=== PATIENT | female | born 1930 | race Caucasian/White ===

== ENCOUNTER 2020-01-08 12:47 | Inpatient (IN) | payer MEDICARE, BC ==
--- NOTE | 2020-01-08 13:14 | ER Document Report ---
ED General - General Chief Complaint: Bloody Stools Stated Complaint: BLOODY STOOLS/COUGH Time Seen by Provider: 01/08/20 13:05 Notes: 89 female presents with rectal bleeding. Twice yesterday twice today with blood in the toilet paper and in the commode. Formed stool no diarrhea. No cramping or pain no lightheadedness dizziness. Colonoscopy history. No weight loss no colon cancer C. - Related Data Home Medications: amilodipine Past Medical History - General Information source: Patient - Social History Smoking Status: Never Smoker Family History: None Patient has homicidal ideation: No Review of Systems - Review of Systems Notes: REVIEW OF SYSTEMS GEN: Denies fever, chills, weight loss ENT: Denies sore throat, nasal discharge, ear pain EYES: Denies blurry vision, eye pain, discharge CV: Denies chest pain, palpitations, edema RESP: Denies cough, shortness of breath, wheezing GI: PI MSK: Denies joint pain/swelling, edema, SKIN: Denies rash, skin lesions LYMPH: Denies swollen glands/lymph nodes NEURO: Denies headache, focal weakness or numbness, dizziness PSYCH: Denies depression, suicidal or homicidal ideation PHYSICAL EXAMINATION General: No acute distress, well-nourished Head: Atraumatic, normocephalic ENT: Mouth normal, oropharynx moist, no exudates or tonsillar enlargement Eyes: Conjunctiva normal, pupils equal, lids normal Neck: No JVD, supple, no guarding CVS: Normal rate, regular rhythm, no murmurs Resp: No resp distress, equal and normal breath sounds bilaterally GI: Amount of maroon stool in the vault g Ext: No deformities, no edema, normal range of motion in upper and lower ext Back: No CVA or midline TTP Skin: No rash, warm Lymphatic: No lymphadeopathy noted Neuro: Awake, alert. Face symmetric. GCS 15. Physical Exam - Vital signs Vitals: Temp Pulse Resp BP Pulse Ox 98.2 F 110 H 16 125/76 96 01/08/20 13:05 01/08/20 13:05 01/08/20 13:05 01/08/20 13:05 01/08/20 13:05 Course - Re-evaluation Re-evalutation: 01/08/20 18:47 Patient presents with GI bleed and maroon stool in the vault with no abdominal pain or tenderness Likely diverticular or other lower GI bleed but the patient has no medical care recently and is never had a colonoscopy for cancer/AVM/etc. is on the list Doubt upper GI bleed Patient had a small maroon stool output Her hemoglobin was slightly low, and on repeat exam 3 hours later dropped by one-point with no fluids or hydration Ideally I would admit her to the hospital overnight for serial hemoglobins and a GI consult but there is no GI available here. After lengthy conversation with the patient we agreed to transfer Discussed with [facility] and she was accepted by the hospitalist at [facility]. 01/08/20 18:[address] Mera from surgery who is not comfortable doing colonoscopy and said there is no intervention that he could perform Recommended tagged red cell scanno note is available here. She does not need CT imaging as far as I can tell Hospitalist advised and agrees. - Vital Signs Vital signs: Temp Pulse Resp BP Pulse Ox 98.2 F 110 H 16 125/76 96 01/08/20 13:08 01/08/20 13:05 01/08/20 13:05 01/08/20 13:05 01/08/20 13:05 - Laboratory Result Diagrams: 01/08/20 16:30 01/08/20 13:00 Laboratory results interpreted by me: 01/08/20 01/08/20 01/08/20 13:00 13:00 16:30 WBC 17.2 H 16.6 H RBC 3.49 L Hgb 11.3 L 10.5 L Hct 34.2 L 31.4 L Absolute Neuts (auto) 13.2 H 12.8 H Sodium 135.9 L BUN 23 H Est GFR (MDRD) Non-Af 55 L Glucose 115 H Discharge - Discharge Clinical Impression: GI bleed Qualifiers: GI bleed type/associated pathology: unspecified gastrointestinal hemorrhage type Qualified Code(s): K92.2 - Gastrointestinal hemorrhage, unspecified Condition: Good Disposition: [facility]
[2020-01-08 13:34] LABS: ABSOLUTE BASOPHILS # (AUTO) 0.1 10^3/uL (0.0-0.2); ABSOLUTE EOSINOPHILS # (AUTO) 0.3 10^3/uL (0.0-0.6); ABSOLUTE LYMPHOCYTES (AUTO) 2.3 10^3/uL (0.5-4.7); ABSOLUTE MONOCYTES (AUTO) 1.3 10^3/uL (0.1-1.4); ABSOLUTE NEUT (AUTO) 13.2 10^3/uL (1.7-8.2); BASOPHILS % (AUTO) 0.5 % (0-2); EOSINOPHILS % (AUTO) 1.8 % (0-6); HEMATOCRIT 34.2 % (36.0-47.0); HEMOGLOBIN 11.3 g/dL (12.0-15.5); LYMPHOCYTES % (AUTO) 13.6 % (13-45); MEAN CORPUSCULAR HEMOGLOBIN 29.9 pg (27.0-33.4); MEAN CORPUSCULAR HGB CONC 32.9 g/dL (32.0-36.0); MEAN CORPUSCULAR VOLUME 91 fl (80-97); MONOCYTES % (AUTO) 7.7 % (3-13); PLATELET COUNT 386 10^3/uL (150-450); RED BLOOD COUNT 3.77 10^6/uL (3.72-5.28); RED CELL DISTRIBUTION WIDTH 13.5 % (11.5-14.0); SEGMENTED NEUTROPHILS % (AUTO) 76.4 % (42-78); TOTAL CELLS COUNTED % (AUTO) 100 %; WHITE BLOOD COUNT 17.2 10^3/uL (4.0-10.5)
[2020-01-08 13:53] LABS: ANION GAP 7 (5-19); BLOOD UREA NITROGEN 23 mg/dL (7-20); CALCIUM 8.4 mg/dL (8.4-10.2); CARBON DIOXIDE 29 mmol/L (22-30); CHLORIDE 100 mmol/L (98-107); GLUCOSE 115 mg/dL (75-110)
[2020-01-08 16:39] LABS: ABSOLUTE EOSINOPHILS # (AUTO) 0.2 10^3/uL (0.0-0.6); ABSOLUTE LYMPHOCYTES (AUTO) 2.3 10^3/uL (0.5-4.7); ABSOLUTE MONOCYTES (AUTO) 1.2 10^3/uL (0.1-1.4); ABSOLUTE NEUT (AUTO) 12.8 10^3/uL (1.7-8.2); BASOPHILS % (AUTO) 0.3 % (0-2); EOSINOPHILS % (AUTO) 1.5 % (0-6); HEMATOCRIT 31.4 % (36.0-47.0); HEMOGLOBIN 10.5 g/dL (12.0-15.5); LYMPHOCYTES % (AUTO) 13.9 % (13-45); MEAN CORPUSCULAR HEMOGLOBIN 30.2 pg (27.0-33.4); MEAN CORPUSCULAR HGB CONC 33.5 g/dL (32.0-36.0); MEAN CORPUSCULAR VOLUME 90 fl (80-97); MONOCYTES % (AUTO) 7.1 % (3-13); PLATELET COUNT 340 10^3/uL (150-450); RED BLOOD COUNT 3.49 10^6/uL (3.72-5.28); RED CELL DISTRIBUTION WIDTH 13.9 % (11.5-14.0); SEGMENTED NEUTROPHILS % (AUTO) 77.2 % (42-78); TOTAL CELLS COUNTED % (AUTO) 100 %; WHITE BLOOD COUNT 16.6 10^3/uL (4.0-10.5)
[2020-01-08] MEDS ORDERED: DEXTROSE 5%-NORMAL SALINE 1,000 ML IV ONE (18:48)
[2020-01-08] MEDS ORDERED: NORMAL SALINE 250 ML IV PRN (21:30)
[2020-01-08 22:03] LABS: HEMATOCRIT 31.2 % (36.0-47.0); HEMOGLOBIN 10.5 g/dL (12.0-15.5); MEAN CORPUSCULAR HEMOGLOBIN 30.3 pg (27.0-33.4); MEAN CORPUSCULAR HGB CONC 33.7 g/dL (32.0-36.0); MEAN CORPUSCULAR VOLUME 90 fl (80-97); PLATELET COUNT 343 10^3/uL (150-450); RED BLOOD COUNT 3.47 10^6/uL (3.72-5.28); RED CELL DISTRIBUTION WIDTH 13.8 % (11.5-14.0); WHITE BLOOD COUNT 15.9 10^3/uL (4.0-10.5)
[2020-01-08] MEDS ORDERED: ONDANSETRON HCL INJ/PF 4 MG/2 ML SDV IV PRN (22:13)
[2020-01-08] MEDS ORDERED: IPRATROPIUM/ALBUTEROL 0.5-2.5 MG/3 ML AMPUL NEB PRN (22:13)
[2020-01-08] MEDS ORDERED: ACETAMINOPHEN 325 MG TABLET PO PRN (22:13)
[2020-01-08] MEDS ORDERED: NORMAL SALINE 1000 ML 1,000 ML IV ONE (22:16)
--- NOTE | 2020-01-09 04:17 | PDOC H&P ---
History of Present Illness Admission Date/PCP: 01/08/20 23:12 Patient complains of: Bright red blood per rectum History of Present Illness: NABIL CORONADO is a 89 year old female with a past medical history of osteoarthritis and hypertension. Presents with approximately 5 days of loose stools followed by 4 episodes of bright red blood per rectum over the last 24 hours. She denies anticoagulation, antiplatelet therapy, previous episode or history of abdominal pain nausea or vomiting following a meal. She otherwise feels well and has had no further episode in the emergency department. She is found to have a mild anemia with a hemoglobin of 11.3 followed by 10.5 again repeated at 10.5 she is referred to the hospitalist for admission. She admits to weight loss of approximately 15 pounds in the last 6 months without effort. She denies change in stool caliber. Or recent GI screening. Past Medical History Cardiac Medical History: Reports: Hypertension Pulmonary Medical History: Reports: None EENT Medical History: Reports: None Neurological Medical History: Reports: None Endocrine Medical History: Reports: None Renal/ Medical History: Reports: None Malignancy Medical History: Reports: None GI Medical History: Reports: None Musculoskeltal Medical History: Reports: Arthritis Skin Medical History: Reports: None Psychiatric Medical History: Denies: Depression Traumatic Medical History: Reports: None Hematology: Reports: None Infectious Medical History: Reports: None Past Surgical History Past Surgical History: Reports: None Social History Information Source: Patient Lives with: Alone Smoking Status: Former Smoker Frequency of Alcohol Use: None Drugs: None - Advance Directive Resuscitation Status: Full Code Family History Family History: Arthritis Parental Family History Reviewed: Yes Children Family History Reviewed: Yes Sibling(s) Family History Reviewed.: Yes Medication/Allergy Allergies/Adverse Reactions: No Known Allergies Allergy (Verified 01/08/20 20:41) Review of Systems Constitutional: ABSENT: chills, fever(s), headache(s), weight gain, weight loss Eyes: ABSENT: visual disturbances Ears: ABSENT: hearing changes Cardiovascular: ABSENT: chest pain, dyspnea on exertion, edema, orthropnea, palpitations Respiratory: ABSENT: cough, hemoptysis Gastrointestinal: ABSENT: abdominal pain, constipation, diarrhea, hematemesis, hematochezia, nausea, vomiting Genitourinary: ABSENT: dysuria, hematuria Musculoskeletal: ABSENT: joint swelling Integumentary: ABSENT: rash, wounds Neurological: ABSENT: abnormal gait, abnormal speech, confusion, dizziness, focal weakness, syncope Psychiatric: ABSENT: anxiety, depression, homidical ideation, suicidal ideation Endocrine: ABSENT: cold intolerance, heat intolerance, polydipsia, polyuria Hematologic/Lymphatic: ABSENT: easy bleeding, easy bruising Physical Exam Vital Signs: Temp Pulse Resp BP Pulse Ox 98.5 F 120 H 20 121/79 99 01/09/20 04:08 01/09/20 04:08 01/09/20 04:08 01/09/20 04:08 01/09/20 04:08 Intake & Output 01/07/20 01/08/20 01/09/20 11:59 11:59 11:59 Intake Total 877 Balance 877 Weight 55.3 kg General appearance: PRESENT: no acute distress, well-developed, well-nourished Head exam: PRESENT: atraumatic, normocephalic Eye exam: PRESENT: conjunctiva pink, EOMI, PERRLA. ABSENT: scleral icterus Ear exam: PRESENT: normal external ear exam Mouth exam: PRESENT: moist, tongue midline Neck exam: ABSENT: carotid bruit, JVD, lymphadenopathy, thyromegaly Respiratory exam: PRESENT: clear to auscultation aisha. ABSENT: rales, rhonchi, wheezes Cardiovascular exam: PRESENT: RRR. ABSENT: diastolic murmur, rubs, systolic murmur Pulses: PRESENT: normal dorsalis pedis pul Vascular exam: PRESENT: normal capillary refill GI/Abdominal exam: PRESENT: normal bowel sounds, soft. ABSENT: distended, guarding, mass, organolmegaly, rebound, tenderness Rectal exam: PRESENT: deferred Extremities exam: PRESENT: full ROM. ABSENT: calf tenderness, clubbing, pedal edema Neurological exam: PRESENT: alert, awake, oriented to person, oriented to place, oriented to time, oriented to situation, CN II-XII grossly intact. ABSENT: motor sensory deficit Psychiatric exam: PRESENT: appropriate affect, normal mood. ABSENT: homicidal ideation, suicidal ideation Skin exam: PRESENT: dry, intact, warm. ABSENT: cyanosis, rash Results Laboratory Results: 01/08/20 21:55 01/08/20 13:00 01/08/20 01/08/20 01/08/20 13:00 13:00 13:00 WBC 17.2 H RBC 3.77 Hgb 11.3 L Hct 34.2 L MCV 91 MCH 29.9 MCHC 32.9 RDW 13.5 Plt Count 386 Seg Neutrophils % 76.4 Sodium 135.9 L Potassium 4.0 Chloride 100 Carbon Dioxide 29 Anion Gap 7 BUN 23 H Creatinine 0.96 Est GFR ( Amer) > 60 Glucose 115 H Calcium 8.4 Blood Type O NEGATIVE Antibody Screen NEGATIVE 01/08/20 01/08/20 16:30 21:55 WBC 16.6 H 15.9 H RBC 3.49 L 3.47 L Hgb 10.5 L 10.5 L Hct 31.4 L 31.2 L MCV 90 90 MCH 30.2 30.3 MCHC 33.5 33.7 RDW 13.9 13.8 Plt Count 340 343 Seg Neutrophils % 77.2 Sodium Potassium Chloride Carbon Dioxide Anion Gap BUN Creatinine Est GFR ( Amer) Glucose Calcium Blood Type Antibody Screen Assessment and Plan - Diagnosis (1) Anemia Qualifiers: Other causes of anemia: acute posthemorrhagic Is this a current diagnosis for this admission?: Yes Plan: Secondary to lower GI bleed, transfuse as needed abrupt change in hemoglobin less then 9. (2) Hypertension Is this a current diagnosis for this admission?: Yes Plan: Hold Norvasc for systolic pressure greater than 160. (3) GI bleed Qualifiers: GI bleed type/associated pathology: unspecified gastrointestinal hemorrhage type Qualified Code(s): K92.2 - Gastrointestinal hemorrhage, unspecified Is this a current diagnosis for this admission?: Yes Plan: Likely lower diverticular bleed given age, history of loose stools and painless bleeding. Follow-up CBC and gastroenterology consult. - Time Time Spent with patient: 25-34 minutes - Inpatient Certification Medical Necessity: Need Close Monitoring Due to Risk of Patient Decompensation
[2020-01-09 06:58] LABS: HEMATOCRIT 34.4 % (36.0-47.0); HEMOGLOBIN 11.4 g/dL (12.0-15.5); MEAN CORPUSCULAR HEMOGLOBIN 29.1 pg (27.0-33.4); MEAN CORPUSCULAR HGB CONC 33.1 g/dL (32.0-36.0); MEAN CORPUSCULAR VOLUME 88 fl (80-97); PLATELET COUNT 276 10^3/uL (150-450); RED BLOOD COUNT 3.91 10^6/uL (3.72-5.28); RED CELL DISTRIBUTION WIDTH 14.7 % (11.5-14.0)
[2020-01-09 07:16] LABS: ABSOLUTE LYMPHOCYTES# (MANUAL) 0.8 10^3/uL (0.5-4.7); ABSOLUTE MONOCYTES # (MANUAL) 1.1 10^3/uL (0.1-1.4); BASOPHILS % (MANUAL) 2 % (0-2); EOSINOPHILS % (MANUAL) 0 % (0-6); LYMPHOCYTES % (MANUAL) 3 % (13-45); MONOCYTES % (MANUAL) 4 % (3-13); SEGMENTED NEUTROPHILS % (MAN) 91 % (42-78); TOTAL CELLS COUNTED 100
[2020-01-09 07:17] LABS: ANISOCYTOSIS SLIGHT; POIKILOCYTOSIS SLIGHT; TOXIC GRANULATION 1+; TOXIC VACUOLATION PRESENT
[2020-01-09 07:18] LABS: OVALOCYTES SLIGHT; PLATELET COMMENT ADEQUATE
[2020-01-09] MEDS ORDERED: GLUCAGON,HUMAN RECOMB 1 MG INJ SUBCUT PRN (08:10)
[2020-01-09] MEDS ORDERED: DEXTROSE 50%-WATER 25 GM/50 ML DISP.SYRIN IV PRN ×2 (08:10)
[2020-01-09] MEDS ORDERED: DEXTROSE 40% GEL 15 GM TUBE PO PRN ×2 (08:10)
[2020-01-09] MEDS: DEXTROSE 5%-NORMAL SALINE 1,000 ML IV PRN (08:37)
--- NOTE | 2020-01-09 09:11 | RADIOLOGY REPORT (SQ) ---
EXAM DESCRIPTION: CHEST SINGLE VIEW IMAGES COMPLETED DATE/TIME: 01/09/2020 8:55 am REASON FOR STUDY: cough, leukocytosis, tacycardia COMPARISON: None. EXAM PARAMETERS: NUMBER OF VIEWS: One view. TECHNIQUE: Single frontal radiographic view of the chest acquired. RADIATION DOSE: NA LIMITATIONS: None. FINDINGS: LUNGS AND PLEURA: Emphysema. Trace right pleural effusion. No infiltrate. MEDIASTINUM AND HILAR STRUCTURES: No masses. Contour normal. HEART AND VASCULAR STRUCTURES: Heart normal in size. Normal vasculature. BONES: No acute findings. HARDWARE: None in the chest. OTHER: No other significant finding. IMPRESSION: COPD. Trace right pleural effusion. TECHNICAL DOCUMENTATION: JOB ID: [id number] 2010 [employer]- All Rights Reserved Reading location - IP/workstation name: [email or web address]
[2020-01-09 09:17] LABS: APPEARANCE,URINE CLEAR; BILIRUBIN,URINE NEGATIVE (NEGATIVE); COLOR,URINE YELLOW; GLUCOSE, URINE NEGATIVE (NEGATIVE); KETONES,URINE TRACE mg/dL (NEGATIVE); PROTEIN,URINE 30 mg/dL (NEGATIVE); URINE SPECIFIC GRAVITY 1.019; UROBILINOGEN,URINE NEGATIVE mg/dL (<2.0)
[2020-01-09 09:18] LABS: ANION GAP 5 (5-19); BLOOD UREA NITROGEN 18 mg/dL (7-20); CALCIUM 7.8 mg/dL (8.4-10.2); CARBON DIOXIDE 26 mmol/L (22-30); CHLORIDE 101 mmol/L (98-107); GLUCOSE 116 mg/dL (75-110); POTASSIUM 3.5 mmol/L (3.6-5.0)
[2020-01-09] MEDS ORDERED: POTASSIUM CHLORIDE 10 MEQ TABLET.ER PO ONE (14:30)
--- NOTE | 2020-01-09 16:48 | PDOC CONSULTATION ---
Consultation Consult Date: 01/09/20 Provider Consulted: JEREMY HDZ Consult reason:: possible GI bleeding, suspicious for possible diverticular bleeding but has reords indicating possible melena which is suggestive of upper GI bleeding History of Present Illness Admission Date/PCP: 01/08/20 23:12 History of Present Illness: NABIL CORONADO is a 89 year old female patient is admitted for rectal bleeding and requiring a blood transfusion there is documentation that it could be melena Melena is defined as black tarry stools which are an indication of upper GI source it is no associated with any epigastric pain no associated nausea or vomiting suspect possible limited diverticular bleeding but will need work up to exclude other etiology Past Medical History Cardiac Medical History: Reports: Hypertension Pulmonary Medical History: Reports: None EENT Medical History: Reports: None Neurological Medical History: Reports: None Endocrine Medical History: Reports: None Renal/ Medical History: Reports: None Malignancy Medical History: Reports: None GI Medical History: Reports: None Musculoskeltal Medical History: Reports: Arthritis Skin Medical History: Reports: None Psychiatric Medical History: Denies: Depression Traumatic Medical History: Reports: None Hematology: Reports: None Infectious Medical History: Reports: None Past Surgical History Past Surgical History: Reports: None Social History Lives with: Alone Smoking Status: Former Smoker Frequency of Alcohol Use: None Drugs: None - Advance Directive Resuscitation Status: Full Code Family History Family History: Arthritis Parental Family History Reviewed: Yes Children Family History Reviewed: Unknown Sibling(s) Family History Reviewed.: Unknown Medication/Allergy Home Medications: Amlodipine Besylate [Norvasc 5 mg Tablet] 5 mg PO DAILY 01/09/20 Calcium Carbonate [Caltrate 600 mg Tablet] 600 mg PO DAILY 01/09/20 Multivitamin 1 each PO DAILY 01/09/20 Laverne-3/Dha/Epa/Fish Oil [Fish Oil 1,000 mg Softgel] 1 each PO DAILY 01/09/20 Allergies/Adverse Reactions: No Known Allergies Allergy (Verified 01/08/20 20:41) Review of Systems Constitutional: ABSENT: fever(s), headache(s), night sweats Eyes: ABSENT: visual disturbances Ears: ABSENT: hearing changes Nose, Mouth, and Throat: ABSENT: mouth pain, sore throat Cardiovascular: ABSENT: edema, orthropnea, palpitations Respiratory: ABSENT: dyspnea, hemoptysis Gastrointestinal: ABSENT: hematemesis Genitourinary: ABSENT: dysuria, hematuria Musculoskeletal: ABSENT: deformity, joint swelling Integumentary: ABSENT: lesions, pruritus Neurological: ABSENT: syncope, tingling, tremor(s), vertigo Endocrine: ABSENT: polydipsia, polyphagia, polyuria Hematologic/Lymphatic: ABSENT: easy bruising, lymphadenopathy Physical Exam Vital Signs: Temp Pulse Resp BP Pulse Ox 98 F 97 16 112/57 L 94 01/09/20 04:10 01/09/20 14:00 01/09/20 10:28 01/09/20 06:14 01/09/20 10:28 Intake & Output 01/08/20 01/09/20 01/10/20 06:59 06:59 06:59 Intake Total 1400 900 Balance 1400 900 Weight 55.3 kg General appearance: PRESENT: no acute distress, well-developed, well-nourished Head exam: PRESENT: atraumatic, normocephalic Eye exam: PRESENT: EOMI, PERRLA. ABSENT: nystagmus, periorbital swelling, scleral icterus Mouth exam: PRESENT: moist, neck supple Throat exam: ABSENT: tonsillar exudate, tonsillogmegaly Neck exam: ABSENT: meningismus, tenderness, thyromegaly Respiratory exam: PRESENT: symmetrical, unlabored. ABSENT: tachypnea, wheezes Cardiovascular exam: PRESENT: RRR, +S1, +S2 GI/Abdominal exam: PRESENT: soft. ABSENT: rebound, rigid, tenderness Extremities exam: ABSENT: joint swelling Musculoskeletal exam: PRESENT: full ROM Neurological exam: PRESENT: oriented to time, oriented to situation, CN II-XII grossly intact Focused psych exam: ABSENT: restlessness Skin exam: PRESENT: normal color, vesicles. ABSENT: mottled, pallor, urticaria Results Laboratory Results: 01/09/20 05:53 01/09/20 05:53 01/08/20 01/08/20 01/08/20 13:00 16:30 21:55 WBC 16.6 H 15.9 H RBC 3.49 L 3.47 L Hgb 10.5 L 10.5 L Hct 31.4 L 31.2 L MCV 90 90 MCH 30.2 30.3 MCHC 33.5 33.7 RDW 13.9 13.8 Plt Count 340 343 Seg Neutrophils % 77.2 Sodium Potassium Chloride Carbon Dioxide Anion Gap BUN Creatinine Est GFR ( Amer) Glucose Calcium Urine Color Urine Appearance Urine pH Ur Specific [place] Urine Protein Urine Glucose (UA) Urine Ketones Urine Blood Urine RBC (Auto) Blood Type O NEGATIVE Antibody Screen NEGATIVE 01/09/20 01/09/20 01/09/20 05:53 05:53 09:04 WBC 27.0 H RBC 3.91 Hgb 11.4 L Hct 34.4 L MCV 88 MCH 29.1 MCHC 33.1 RDW 14.7 H Plt Count 276 Seg Neutrophils % Not Reportable Sodium 132.4 L Potassium 3.5 L Chloride 101 Carbon Dioxide 26 Anion Gap 5 BUN 18 Creatinine 0.75 Est GFR ( Amer) > 60 Glucose 116 H Calcium 7.8 L Urine Color YELLOW Urine Appearance CLEAR Urine pH 5.0 Ur Specific [place] 1.019 Urine Protein 30 H Urine Glucose (UA) NEGATIVE Urine Ketones TRACE H Urine Blood NEGATIVE Urine RBC (Auto) 2 Blood Type Antibody Screen Impressions: Chest X-Ray 01/09/20 00:00 IMPRESSION: COPD. Trace right pleural effusion. Assessment & Plan - Diagnosis (1) GI bleed Qualifiers: GI bleed type/associated pathology: unspecified gastrointestinal hemorrhage type Qualified Code(s): K92.2 - Gastrointestinal hemorrhage, unspecified Is this a current diagnosis for this admission?: Yes Plan: suspicious for possible lower GI bleeding , however since there is a mention that it could be upper GI warrants an evaluation if case the colonoscopy is negative will schedule a colonoscopy/ EGD in the OR, if source is found on colon , will not perform an EGD Risks, benefits and alternatives are discussed with the patient in detail further recommendations to follow - Time Time Spent: 50 to 70 Minutes
[2020-01-09] MEDS ORDERED: POLYETHYLENE GLYCOL 3350 POWDER 17 GM/1 PACKET PO ONE (17:00)
--- NOTE | 2020-01-09 17:41 | PDOC PROGRESS REPORT ---
Subjective Progress Note for:: 01/09/20 Subjective:: NABIL CORONADO is a 89 year old female with a past medical history of osteoarthritis and hypertension who was admitted 01/08/2020 with acute blood loss anemia secondary to GI bleed. Patient was seen on afternoon rounds. She was found resting in bed, comfortably, on room air. She has had additional melena bowel movements. She denies abdominal discomfort, nausea, vomiting, chest pain, palpitations, dyspnea, dizziness and headaches. Discussed planned EGD/colonoscopy tomorrow. She has no other questions or concerns at this time. No concerns per nursing. Reason For Visit: LOWER GI BLEED Physical Exam Vital Signs: Temp Pulse Resp BP Pulse Ox 98 F 97 16 112/57 L 94 01/09/20 04:10 01/09/20 14:00 01/09/20 10:28 01/09/20 06:14 01/09/20 10:28 Intake & Output 01/08/20 01/09/20 01/10/20 06:59 06:59 06:59 Intake Total 1400 900 Balance 1400 900 Weight 55.3 kg General appearance: PRESENT: no acute distress, cooperative, well-developed, well-nourished, other - frail appearing Head exam: PRESENT: atraumatic, normocephalic Eye exam: PRESENT: conjunctiva pink, EOMI, PERRLA. ABSENT: scleral icterus Mouth exam: PRESENT: moist, tongue midline Respiratory exam: PRESENT: clear to auscultation aisha, symmetrical, unlabored. ABSENT: rales, rhonchi, wheezes Cardiovascular exam: PRESENT: RRR, +S1, +S2. ABSENT: diastolic murmur, rubs, systolic murmur Pulses: PRESENT: normal dorsalis pedis pul Vascular exam: PRESENT: normal capillary refill GI/Abdominal exam: PRESENT: normal bowel sounds, soft. ABSENT: distended, guarding, mass, organolmegaly, rebound, tenderness Rectal exam: PRESENT: deferred Extremities exam: PRESENT: full ROM. ABSENT: calf tenderness, clubbing, pedal edema Musculoskeletal exam: PRESENT: ambulatory Neurological exam: PRESENT: alert, awake, oriented to person, oriented to place, oriented to time, oriented to situation, CN II-XII grossly intact. ABSENT: motor sensory deficit Psychiatric exam: PRESENT: appropriate affect, normal mood. ABSENT: homicidal i deation, suicidal ideation Skin exam: PRESENT: dry, intact, warm. ABSENT: cyanosis, rash Results Laboratory Results: 01/09/20 05:53 01/09/20 05:53 01/08/20 01/08/20 01/09/20 13:00 21:55 05:53 WBC 15.9 H 27.0 H RBC 3.47 L 3.91 Hgb 10.5 L 11.4 L Hct 31.2 L 34.4 L MCV 90 88 MCH 30.3 29.1 MCHC 33.7 33.1 RDW 13.8 14.7 H Plt Count 343 276 Seg Neutrophils % Not Reportable Sodium Potassium Chloride Carbon Dioxide Anion Gap BUN Creatinine Est GFR ( Amer) Glucose Calcium Urine Color Urine Appearance Urine pH Ur Specific [place] Urine Protein Urine Glucose (UA) Urine Ketones Urine Blood Urine RBC (Auto) Blood Type O NEGATIVE Antibody Screen NEGATIVE 01/09/20 01/09/20 05:53 09:04 WBC RBC Hgb Hct MCV MCH MCHC RDW Plt Count Seg Neutrophils % Sodium 132.4 L Potassium 3.5 L Chloride 101 Carbon Dioxide 26 Anion Gap 5 BUN 18 Creatinine 0.75 Est GFR ( Amer) > 60 Glucose 116 H Calcium 7.8 L Urine Color YELLOW Urine Appearance CLEAR Urine pH 5.0 Ur Specific [place] 1.019 Urine Protein 30 H Urine Glucose (UA) NEGATIVE Urine Ketones TRACE H Urine Blood NEGATIVE Urine RBC (Auto) 2 Blood Type Antibody Screen Impressions: Chest X-Ray 01/09/20 00:00 IMPRESSION: COPD. Trace right pleural effusion. Assessment and Plan - Diagnosis (1) GI bleed Qualifiers: GI bleed type/associated pathology: unspecified gastrointestinal hemorrhage type Qualified Code(s): K92.2 - Gastrointestinal hemorrhage, unspecified Is this a current diagnosis for this admission?: Yes Plan: Likely lower diverticular bleed given age, history of loose stools and painless bleeding. GI consulted; planning EGD/Colonoscopy tomorrow. Clear liquid diet; bowel prep this evening Protonix twice daily Follow H&H closely (2) Anemia Qualifiers: Other causes of anemia: acute posthemorrhagic Is this a current diagnosis for this admission?: Yes Plan: Secondary to lower GI bleed s/p 1 unit PRBC Hgb 11.3-> 10.5-> 10.5-> 11.4 Serial CBC and transfuse as indicated. (3) Leukocytosis Is this a current diagnosis for this admission?: Yes Plan: Likely reactive secondary to GI bleed. Patient remains afebrile without complaints or symptoms to suggest infectious process. CXR negative for acute fidings. UA negative Blood cultures pending Follow up CBC; if continue to trend upwards, consider start of IV Cipro/Flagyl (4) Hypertension Is this a current diagnosis for this admission?: Yes Plan: Hold Norvasc r/t soft blood pressures; resume once SBP consistently >130 - Time Time Spent with patient: 25-34 minutes Medications reviewed and adjusted accordingly: Yes Anticipated discharge: Home
[2020-01-09 18:37] LABS: HEMATOCRIT 37.7 % (36.0-47.0); HEMOGLOBIN 12.2 g/dL (12.0-15.5); MEAN CORPUSCULAR HEMOGLOBIN 29.5 pg (27.0-33.4); MEAN CORPUSCULAR HGB CONC 32.4 g/dL (32.0-36.0); MEAN CORPUSCULAR VOLUME 91 fl (80-97); PLATELET COUNT 325 10^3/uL (150-450); RED BLOOD COUNT 4.14 10^6/uL (3.72-5.28); RED CELL DISTRIBUTION WIDTH 15.2 % (11.5-14.0)
[2020-01-09] MEDS: PANTOPRAZOLE SODIUM 40 MG VIAL IV SCH (21:20)
[2020-01-10] MEDS: DEXTROSE 5%-NORMAL SALINE 1,000 ML IV PRN ×3 (00:16→21:30)
[2020-01-10 06:56] LABS: HEMATOCRIT 34.5 % (36.0-47.0); HEMOGLOBIN 11.5 g/dL (12.0-15.5); MEAN CORPUSCULAR HEMOGLOBIN 29.5 pg (27.0-33.4); MEAN CORPUSCULAR HGB CONC 33.3 g/dL (32.0-36.0); MEAN CORPUSCULAR VOLUME 89 fl (80-97); PLATELET COUNT 266 10^3/uL (150-450); RED BLOOD COUNT 3.89 10^6/uL (3.72-5.28); RED CELL DISTRIBUTION WIDTH 14.9 % (11.5-14.0); WHITE BLOOD COUNT 13.5 10^3/uL (4.0-10.5)
[2020-01-10 07:00] LABS: BLOOD UREA NITROGEN 12 mg/dL (7-20); CALCIUM 7.8 mg/dL (8.4-10.2); CARBON DIOXIDE 25 mmol/L (22-30); CHLORIDE 106 mmol/L (98-107); GLUCOSE 116 mg/dL (75-110); POTASSIUM 3.3 mmol/L (3.6-5.0)
[2020-01-10 07:10] LABS: ANION GAP 4 (5-19)
[2020-01-10] MEDS: PANTOPRAZOLE SODIUM 40 MG VIAL IV SCH ×2 (09:46→21:19)
[2020-01-10] MEDS ORDERED: (PENDING PHARMACY ID) (Omega-3/Dha/Epa/Fish Oil [Fish Oil 1,000 Mg Softgel] 1 EACH) PO SCH (10:00)
[2020-01-10 10:19] LABS: ABSOLUTE RETICS # 0.052 10^6/uL (0.028-0.122); RETICULOCYTE COUNT (AUTO) 1.24 % (0.66-2.85)
[2020-01-10] MEDS ORDERED: PROPOFOL INJ 200 MG/20 ML VIAL IV ONE (11:49)
--- NOTE | 2020-01-10 12:13 | PDOC PROGRESS REPORT ---
Subjective Progress Note for:: 01/10/20 Subjective:: NABIL CORONADO is a 89 year old female with a past medical history of osteoarthritis and hypertension who was admitted 01/08/2020 with acute blood loss anemia secondary to GI bleed. 01/10/2020. No acute events overnight. Comfortably resting in bed no apparent distress, pending upper and lower GI endoscopy, denies any melena, hematochezia or hematemesis. Reason For Visit: LOWER GI BLEED Physical Exam Vital Signs: Temp Pulse Resp BP Pulse Ox 97.5 F 86 12 109/62 93 01/10/20 08:33 01/10/20 08:33 01/10/20 08:33 01/10/20 08:33 01/10/20 08:33 Intake & Output 01/09/20 01/10/20 01/11/20 06:59 06:59 06:59 Intake Total 1400 2530 1000 Balance 1400 2530 1000 Weight 55.3 kg 56.4 kg General appearance: PRESENT: no acute distress, well-developed, well-nourished Head exam: PRESENT: atraumatic, normocephalic Respiratory exam: PRESENT: clear to auscultation aisha. ABSENT: rales, rhonchi, wheezes Cardiovascular exam: PRESENT: RRR. ABSENT: diastolic murmur, rubs, systolic murmur GI/Abdominal exam: PRESENT: normal bowel sounds, soft. ABSENT: distended, guarding, mass, organolmegaly, rebound, tenderness Neurological exam: PRESENT: alert, awake, oriented to person, oriented to place, oriented to time, oriented to situation, CN II-XII grossly intact. ABSENT: motor sensory deficit Results Laboratory Results: 01/10/20 06:04 01/10/20 06:04 01/09/20 01/10/20 01/10/20 18:05 06:04 06:04 WBC 21.0 H 13.5 H RBC 4.14 3.89 Hgb 12.2 11.5 L Hct 37.7 34.5 L MCV 91 89 MCH 29.5 29.5 MCHC 32.4 33.3 RDW 15.2 H 14.9 H Plt Count 325 266 Retic Count (auto) Sodium 135.1 L Potassium 3.3 L Chloride 106 Carbon Dioxide 25 Anion Gap 4 L BUN 12 Creatinine 0.76 Est GFR ( Amer) > 60 Glucose 116 H Calcium 7.8 L Transferrin 01/10/20 01/10/20 06:04 10:48 WBC RBC Hgb Hct MCV MCH MCHC RDW Plt Count Retic Count (auto) 1.24 Sodium Potassium Chloride Carbon Dioxide Anion Gap BUN Creatinine Est GFR ( Amer) Glucose Calcium Transferrin 120.95 L Impressions: Chest X-Ray 01/09/20 00:00 IMPRESSION: COPD. Trace right pleural effusion. Assessment and Plan - Diagnosis (1) GI bleed Qualifiers: GI bleed type/associated pathology: unspecified gastrointestinal hemorrhage type Qualified Code(s): K92.2 - Gastrointestinal hemorrhage, unspecified Is this a current diagnosis for this admission?: Yes Plan: Likely lower diverticular bleed given age, history of loose stools and painless bleeding. s/p 1 unit PRBC on admission. H&H stable. Denies any melena, hematochezia or hematemesis. Gastroenterology on board. Pending upper and lower GI endoscopy. Continue PPIs. Monitor H&H. Supportive transfusions. (2) Anemia Qualifiers: Other causes of anemia: acute posthemorrhagic Is this a current diagnosis for this admission?: Yes Plan: Acute iron deficiency anemia most likely due to GI bleed. s/p 1 unit PRBC on admission. H&H stable. Denies any melena, hematochezia or hematemesis. Gastroenterology on board. Pending upper and lower GI endoscopy. Monitor H&H. Monitor for bleeding. Supportive transfusions. (3) Hypertension Is this a current diagnosis for this admission?: Yes Plan: Controlled. Hold Norvasc r/t soft blood pressures; resume once SBP consistently >130 (4) Leukocytosis Is this a current diagnosis for this admission?: Yes Plan: Likely reactive secondary to GI bleed. No sign of systemic infection. CXR negative for acute fidings. UA negative Cultures negative since admission. Follow up CBC; if continue to trend upwards, consider start of IV Cipro/Flagyl
[2020-01-10 12:48] LABS: FOLATE > 20.00 ng/mL (>2.76)
[2020-01-10] MEDS: MULTIVITAMIN TABLET PO SCH (15:05)
[2020-01-10] MEDS: CALCIUM CARBONATE 600 MG TABLET PO SCH (15:05)
[2020-01-10] MEDS: OMEGA-3 ACID ETHYL ESTERS 1 GM CAPSULE PO SCH (15:06)
--- NOTE | 2020-01-10 16:00 | Operative Report ---
Operative Report DATE OF SURGERY: 01/10/20 Operative Report: The risks, benefits and alternatives are discussed with the patient in detail patient brought to the OR and Propofol sedation provided patient had both procedures performed Prep good colonoscopy performed no post procedure complications are noted PREOPERATIVE DIAGNOSIS: GI bleeding POSTOPERATIVE DIAGNOSIS: righrt colon mass with ulceration causing the bleeding, the lesion is likely at the junction of the ascending colon and the area of the hepatic flexure. biopsies are obtained. submucosal alden ink injection done. Dr Mazariegos is aware. intraprocedure consultation obtained. Hospitalist advised. EGD is negative except for some gastritis, biospies are obtained OPERATION: Colonoscopy with biopsy. colonoscopy with submucosal alden ink injection. EGD with biopsy SURGEON: JEREMY HDZ ANESTHESIA: LMAC TISSUE REMOVED OR ALTERED: as noted above COMPLICATIONS: none ESTIMATED BLOOD LOSS: none INTRAOPERATIVE FINDINGS: as noted above PROCEDURE: patient tolerated the procedure well she is sent to recovery in good condition as noted intraprocedure consultation was done with Dr Mazariegos karishma likely need CT of abdomen with oral and iv contrast will likely need surgery wait on the pathology
--- NOTE | 2020-01-11 08:26 | PDOC CONSULTATION ---
Consultation Consult Date: 01/11/20 Attending physician:: ABRAHAN HOYOS Provider Consulted: PETE ESPINOZA Consult reason:: Likely right colon cancer History of Present Illness Admission Date/PCP: 01/08/20 23:12 Patient complains of: Hematochezia, weight loss History of Present Illness: NABIL CORONADO is a 89 year old female with recent history of hematochezia, about 4 days ago she began having bloody stool, ultimately it resulted in her coming in here, she was found to have anemia with a hemoglobin in the 9 range, stool occult positive, of note in the last 6 months she is lost about 15 pounds. But she is very active, lives with her 92-year-old alone and recently moved here from [place] to be closer to family, but does most of her ADLs and IADLs by herself. She had colonoscopy done which indicated a large right-sided colon ma ss. Past Medical History Cardiac Medical History: Reports: Hypertension Pulmonary Medical History: Reports: None EENT Medical History: Reports: None Neurological Medical History: Reports: None Endocrine Medical History: Reports: None Renal/ Medical History: Reports: None Malignancy Medical History: Reports: None GI Medical History: Reports: None Musculoskeltal Medical History: Reports: Arthritis Skin Medical History: Reports: None Psychiatric Medical History: Denies: Depression Traumatic Medical History: Reports: None Hematology: Reports: None Infectious Medical History: Reports: None Past Surgical History Past Surgical History: Reports: None Social History Information Source: Patient Lives with: Alone Smoking Status: Former Smoker Frequency of Alcohol Use: None Drugs: None - Advance Directive Resuscitation Status: Full Code Family History Family History: Arthritis Parental Family History Reviewed: Yes Children Family History Reviewed: Yes Sibling(s) Family History Reviewed.: Yes Medication/Allergy Home Medications: Amlodipine Besylate [Norvasc 5 mg Tablet] 5 mg PO DAILY 01/09/20 Calcium Carbonate [Caltrate 600 mg Tablet] 600 mg PO DAILY 01/09/20 Multivitamin 1 each PO DAILY 01/09/20 [place]-3/Dha/Epa/Fish Oil [Fish Oil 1,000 mg Softgel] 1 each PO DAILY 01/09/20 Allergies/Adverse Reactions: No Known Allergies Allergy (Verified 01/08/20 20:41) Review of Systems Constitutional: ABSENT: chills, fever(s), headache(s), weight gain, weight loss Eyes: ABSENT: visual disturbances Ears: ABSENT: hearing changes Cardiovascular: ABSENT: chest pain, dyspnea on exertion, edema, orthropnea, palpitations Respiratory: ABSENT: cough, hemoptysis Gastrointestinal: ABSENT: abdominal pain, constipation, diarrhea, hematemesis, hematochezia, nausea, vomiting Genitourinary: ABSENT: dysuria, hematuria Musculoskeletal: ABSENT: joint swelling Integumentary: ABSENT: rash, wounds Neurological: ABSENT: abnormal gait, abnormal speech, confusion, dizziness, focal weakness, syncope Psychiatric: ABSENT: anxiety, depression, homidical ideation, suicidal ideation Endocrine: ABSENT: cold intolerance, heat intolerance, polydipsia, polyuria Hematologic/Lymphatic: ABSENT: easy bleeding, easy bruising Physical Exam Vital Signs: Temp Pulse Resp BP Pulse Ox 97.9 F 88 18 113/69 94 01/11/20 03:03 01/11/20 03:03 01/11/20 03:03 01/11/20 03:03 01/11/20 03:03 Intake & Output 01/10/20 01/11/20 01/12/20 06:59 06:59 06:59 Intake Total 2530 3240 Output Total 0 Balance 2530 3240 Weight 56.4 kg 55.2 kg General appearance: PRESENT: no acute distress, well-developed, well-nourished Head exam: PRESENT: atraumatic, normocephalic Eye exam: PRESENT: conjunctiva pink, EOMI, PERRLA. ABSENT: scleral icterus Ear exam: PRESENT: normal external ear exam Mouth exam: PRESENT: moist, tongue midline Neck exam: ABSENT: carotid bruit, JVD, lymphadenopathy, thyromegaly Respiratory exam: PRESENT: clear to auscultation aisha. ABSENT: rales, rhonchi, wheezes Cardiovascular exam: PRESENT: RRR. ABSENT: diastolic murmur, rubs, systolic murmur Pulses: PRESENT: normal dorsalis pedis pul Vascular exam: PRESENT: normal capillary refill GI/Abdominal exam: PRESENT: normal bowel sounds, soft. ABSENT: distended, g uarding, mass, organolmegaly, rebound, tenderness Rectal exam: PRESENT: deferred Extremities exam: PRESENT: full ROM. ABSENT: calf tenderness, clubbing, pedal edema Neurological exam: PRESENT: alert, awake, oriented to person, oriented to place, oriented to time, oriented to situation, CN II-XII grossly intact. ABSENT: mo tor sensory deficit Psychiatric exam: PRESENT: appropriate affect, normal mood. ABSENT: homicidal ideation, suicidal ideation Skin exam: PRESENT: dry, intact, warm. ABSENT: cyanosis, rash Results Laboratory Results: 01/10/20 06:04 01/10/20 06:04 01/10/20 01/10/20 01/10/20 06:04 10:48 10:48 Retic Count (auto) 1.24 Iron 32.0 L TIBC 194 L % Saturation 16 Transferrin 120.95 L Ferritin 409.00 H Vitamin B12 903.0 Folate > 20.00 Impressions: Chest X-Ray 01/09/20 00:00 IMPRESSION: COPD. Trace right pleural effusion. Assessment & Plan - Diagnosis (1) Mass of hepatic flexure of colon Is this a current diagnosis for this admission?: Yes Plan: Likely to be a right-sided colon cancer, CT chest abdomen pelvis and CEA pending. Had long discussion with patient about upcoming surgery, patient is planned for right hemicolectomy. I believe she is a good candidate for surgery given her lack of major comorbidities and health status even though her age is 89. Will follow. - Time Time Spent: Greater than 70 Minutes - Inpatient Certification Based on my medical assessment, after consideration of the patient's comorbidities, presenting symptoms, or acuity I expect that the services needed warrant INPATIENT care.: Yes I certify that my determination is in accordance with my understanding of Medicare's requirements for reasonable and necessary INPATIENT services [42 CFR 412.3e].: Yes Medical Necessity: Need For IV Fluids, Need for Surgery
[2020-01-11] MEDS ORDERED: AMPICILLIN SODIUM/SULBACTAM NA 1.5 GM in NORMAL SALINE 50 ML IV PRN (08:50)
[2020-01-11] MEDS: CALCIUM CARBONATE 600 MG TABLET PO SCH (09:02)
[2020-01-11] MEDS: OMEGA-3 ACID ETHYL ESTERS 1 GM CAPSULE PO SCH (09:45)
[2020-01-11] MEDS: FERROUS SULFATE 325 MG TABLET PO SCH (09:45)
[2020-01-11] MEDS: MULTIVITAMIN TABLET PO SCH (09:46)
--- NOTE | 2020-01-11 10:13 | PDOC CONSULTATION ---
Consultation Consult Date: 01/11/20 Attending physician:: ABRAHAN HOYOS Provider Consulted: LORENA HUSSEIN Consult reason:: Right colon mass History of Present Illness Admission Date/PCP: 01/08/20 23:12 History of Present Illness: NABIL CORONADO is a 89 year old female Presents emergency department via ground rescue complaining of a several day history of blood per rectum. Patient is never had a colonoscopy, denies previous GI bleeding. She recently relocated here from [place]; she is originally from [facility]. She lives with her 92-year-old . She was f ound to be anemic with a hemoglobin of 9.5, received 1 unit of packed cells and hemoglobin lex to 11.5. She underwent colonoscopy by Dr. Leiva yesterday and was found to have a right colon mass. There was no remark made about the remainder of the colon. Patient is seen by oncology this morning, and has had CT scans of the chest abdomen and pelvis ordered. There is no known family history of colorectal cancer. She has been kept n.p.o. Past Medical History Past Medical History: COPD; remote history of smoking; hypertension Cardiac Medical History: Reports: Hypertension Pulmonary Medical History: Reports: None EENT Medical History: Reports: None Neurological Medical History: Reports: None Endocrine Medical History: Reports: None Renal/ Medical History: Reports: None Malignancy Medical History: Reports: None GI Medical History: Reports: None Musculoskeltal Medical History: Reports: Arthritis Skin Medical History: Reports: None Psychiatric Medical History: Denies: Depression Traumatic Medical History: Reports: None Hematology: Reports: None Infectious Medical History: Reports: None Past Surgical History Past Surgical History: None; no previous colonoscopy prior to yesterday's procedure. Past Surgical History: Reports: None Social History Information Source: Patient Lives with: Alone Smoking Status: Former Smoker Frequency of Alcohol Use: None Drugs: None - Advance Directive Resuscitation Status: Full Code Family History Family History: None, Arthritis Parental Family History Reviewed: No Children Family History Reviewed: No Sibling(s) Family History Reviewed.: No Medication/Allergy Home Medications: Amlodipine Besylate [Norvasc 5 mg Tablet] 5 mg PO DAILY 01/09/20 Calcium Carbonate [Caltrate 600 mg Tablet] 600 mg PO DAILY 01/09/20 Multivitamin 1 each PO DAILY 01/09/20 [place]-3/Dha/Epa/Fish Oil [Fish Oil 1,000 mg Softgel] 1 each PO DAILY 01/09/20 Allergies/Adverse Reactions: No Known Allergies Allergy (Verified 01/08/20 20:41) Review of Systems Constitutional: PRESENT: weight loss - Approximately 15 pounds Eyes: ABSENT: visual disturbances Ears: ABSENT: hearing changes Cardiovascular: ABSENT: chest pain, dyspnea on exertion, edema, orthropnea, palpitations Respiratory: ABSENT: cough, hemoptysis Gastrointestinal: PRESENT: other - Abdominal pain generalized, but no nausea vomiting. Denies change in bowel habits; no prior colonoscopy Genitourinary: ABSENT: dysuria, hematuria Musculoskeletal: ABSENT: joint swelling Neurological: ABSENT: abnormal gait, abnormal speech, confusion, dizziness, focal weakness, syncope Psychiatric: ABSENT: anxiety, depression, homidical ideation, suicidal ideation Physical Exam Vital Signs: Temp Pulse Resp BP Pulse Ox 97.9 F 88 18 113/69 94 01/11/20 03:03 01/11/20 09:54 01/11/20 09:54 01/11/20 03:03 01/11/20 09:54 Intake & Output 01/10/20 01/11/20 01/12/20 06:59 06:59 06:59 Intake Total 2530 3240 Output Total 0 Balance 2530 3240 Weight 56.4 kg 55.2 kg General appearance: PRESENT: no acute distress Head exam: PRESENT: normocephalic Eye exam: PRESENT: EOMI Mouth exam: PRESENT: dry mucosa Neck exam: PRESENT: full ROM Respiratory exam: PRESENT: clear to auscultation aisha Cardiovascular exam: PRESENT: RRR Pulses: PRESENT: normal carotid pulses, normal radial pulses, normal femoral pulses, normal dorsalis pedis pul GI/Abdominal exam: PRESENT: other - Readily palpable right lower quadrant mass, mildly tender ; remainder the abdomen is soft. No groin hernias Results Laboratory Results: 01/10/20 06:04 01/10/20 06:04 01/10/20 01/10/20 01/10/20 06:04 10:48 10:48 Retic Count (auto) 1.24 Iron 32.0 L TIBC 194 L % Saturation 16 Transferrin 120.95 L Ferritin 409.00 H Vitamin B12 903.0 Folate > 20.00 Impressions: Chest X-Ray 01/09/20 00:00 IMPRESSION: COPD. Trace right pleural effusion. Assessment & Plan - Diagnosis (1) Cancer of right colon Is this a current diagnosis for this admission?: Yes Plan: Impression: Large right colon tumor in functional 89-year-old female with anemia, remote history of COPD, with excellent functional status. Status post 1 unit of blood transfused with hemoglobin up to 11.5 Discussion and recommendations: 1. At bedside with nursing staff present, I discussed with patient the clinical and endoscopic findings of a right colon tumor. In order to prevent further bleeding, possible obstruction, and or perforation, surgery is recommended in an otherwise functional, elderly 89-year-old female. I have drawn pictures on the board, and discussed the mechanics of surgery as well as hospital course, and possible complications bleeding bleeding, cardiovascular collapse and even . 2. Naturally patient was overwhelmed initially with this news, but slowly she began to process it. I subsequently spoke for approximately 20 minutes on the phone with Mrs. Sherrill Fajardo, patient's niece. I reviewed all the above. Ms. Fajardo was very appreciative, agrees with the recommendation for surgery. 3. I discussed the above with the hospitalist service, as well as Dr. Joseph, on-call oncologist, who will obtain CT scans the chest abdomen and pelvis for staging. 4. We have tentatively set the patient up for surgery later today. Will check her EKG and chest x-ray preop. I will also discussed the patient with the anesthesia service. (2) Former smoker Is this a current diagnosis for this admission?: Yes (3) COPD (chronic obstructive pulmonary disease) Is this a current diagnosis for this admission?: Yes (4) Anemia Qualifiers: Other causes of anemia: acute posthemorrhagic Is this a current diagnosis for this admission?: Yes (5) GI bleed Qualifiers: GI bleed type/associated pathology: unspecified gastrointestinal hemorrhage type Qualified Code(s): K92.2 - Gastrointestinal hemorrhage, unspecified Is this a current diagnosis for this admission?: Yes (6) Hypertension Is this a current diagnosis for this admission?: Yes - Time Time Spent: 50 to 70 Minutes Smoking Cessation Education: over 10 minutes Medications reviewed and adjusted accordingly: Yes Anticipated discharge: Home - Inpatient Certification Based on my medical assessment, after consideration of the patient's comorbidities, presenting symptoms, or acuity I expect that the services needed warrant INPATIENT care.: Yes I certify that my determination is in accordance with my understanding of Medicare's requirements for reasonable and necessary INPATIENT services [42 CFR 412.3e].: Yes Medical Necessity: Need for Pain Control, Need for IV Antibiotics, Need for Surgery
--- NOTE | 2020-01-11 10:23 | PDOC PROGRESS REPORT ---
Subjective Progress Note for:: 01/11/20 Subjective:: NABIL CORONADO is a 89 year old female with a past medical history of osteoarthritis and hypertension. Presents with approximately 5 days of loose stools followed by 4 episodes of bright red blood per rectum over the last 24 hours. She denies anticoagulation, antiplatelet therapy, previous episode or history of abdominal pain nausea or vomiting following a meal. She otherwise feels well and has had no further episode in the emergency department. She is found to have a mild anemia with a hemoglobin of 11.3 followed by 10.5 again repeated at 10.5 she is referred to the hospitalist for admission. She admits to weight loss of approximately 15 pounds in the last 6 months without effort. She denies change in stool caliber. Or recent GI screening. 01/10/2020. No acute events overnight. Comfortably resting in bed no apparent distress, pending upper and lower GI endoscopy, denies any melena, hematochezia or hematemesis. 01/11/2020. No acute events overnight. Patient is status post lower GI endoscopy unfortunately patient has a colonic mass most likely cancerous, surgery and oncology has been consulted. Patient is pending possible surgery today. Patient comfortably sitting in bed no apparent distress, alert and oriented x3, complaining of being hungry, denies any headache, shortness of breath, nausea, chest pain, abdominal pain, diarrhea, constipation or any urinary symptoms. Has not had any recurrence of her hematochezia. Reason For Visit: LOWER GI BLEED Physical Exam Vital Signs: Temp Pulse Resp BP Pulse Ox 97.9 F 88 18 113/69 94 01/11/20 03:03 01/11/20 09:54 01/11/20 09:54 01/11/20 03:03 01/11/20 09:54 Intake & Output 01/10/20 01/11/20 01/12/20 06:59 06:59 06:59 Intake Total 2530 3240 Output Total 0 Balance 2530 3240 Weight 56.4 kg 55.2 kg General appearance: PRESENT: no acute distress, well-developed, well-nourished Head exam: PRESENT: atraumatic, normocephalic Respiratory exam: PRESENT: clear to auscultation aisha. ABSENT: rales, rhonchi, wheezes Cardiovascular exam: PRESENT: RRR. ABSENT: diastolic murmur, rubs, systolic murmur GI/Abdominal exam: PRESENT: normal bowel sounds, soft. ABSENT: distended, guarding, mass, organolmegaly, rebound, tenderness Neurological exam: PRESENT: alert, awake, oriented to person, oriented to place, oriented to time, oriented to situation, CN II-XII grossly intact. ABSENT: motor sensory deficit Results Laboratory Results: 01/10/20 06:04 01/10/20 06:04 01/10/20 01/10/20 01/10/20 06:04 10:48 10:48 Retic Count (auto) 1.24 Iron 32.0 L TIBC 194 L % Saturation 16 Transferrin 120.95 L Ferritin 409.00 H Vitamin B12 903.0 Folate > 20.00 Impressions: Chest X-Ray 01/09/20 00:00 IMPRESSION: COPD. Trace right pleural effusion. Assessment and Plan - Diagnosis (1) Mass of hepatic flexure of colon Is this a current diagnosis for this admission?: Yes Plan: Based on colonoscopy finding. Likely colonic adenocarcinoma. Surgery and oncology on board. Pending CT abdomen and chest for staging. Patient is scheduled for possible surgical intervention today by surgery. (2) Anemia Qualifiers: Other causes of anemia: acute posthemorrhagic Is this a current diagnosis for this admission?: Yes Plan: Acute iron deficiency anemia most likely due to GI bleed. Iron studies suggestive of severe iron deficiency anemia. s/p 1 unit PRBC on admission. H&H stable. Denies any melena, hematochezia or hematemesis. Continue oral ferrous sulfate. Monitor H&H. Monitor for bleeding. Supportive transfusions. (3) COPD (chronic obstructive pulmonary disease) Is this a current diagnosis for this admission?: Yes Plan: History of COPD and former smoker. Does not seem to be acutely exacerbated. SPO2 WNL on RA. Continue nebs as needed. Continue supplemental oxygen as needed. (4) GI bleed Qualifiers: GI bleed type/associated pathology: unspecified gastrointestinal hemorrhage type Qualified Code(s): K92.2 - Gastrointestinal hemorrhage, unspecified Is this a current diagnosis for this admission?: Yes Plan: Secondary to colonic mass. s/p 1 unit PRBC on admission. H&H stable. Denies any melena, hematochezia or hematemesis. Continue PPIs. Monitor H&H. Supportive transfusions. (5) Hypertension Is this a current diagnosis for this admission?: Yes Plan: Controlled. Hold Norvasc r/t soft blood pressures; resume once SBP consistently >130 (6) Leukocytosis Is this a current diagnosis for this admission?: Yes Plan: Improving. Likely reactive secondary to GI bleed. No sign of systemic infection. CXR negative for acute fidings. UA negative Cultures negative since admission. Follow up CBC; if continue to trend upwards, consider start of IV Cipro/Flagyl
[2020-01-11] MEDS: PANTOPRAZOLE SODIUM 40 MG VIAL IV SCH (10:28)
--- NOTE | 2020-01-11 10:29 | RADIOLOGY REPORT (SQ) ---
EXAM DESCRIPTION: CT CHEST WITH IMAGES COMPLETED DATE/TIME: 01/11/2020 10:15 am REASON FOR STUDY: colon cancer staging COMPARISON: None. TECHNIQUE: CT scan of the chest performed using helical scanning technique with dynamic intravenous contrast injection. Images reviewed with lung, soft tissue and bone windows. Reconstructed coronal and sagittal MPR and MIP images reviewed. All images stored on PACS. All CT scanners at this facility use dose modulation, iterative reconstruction, and/or weight based d osing when appropriate to reduce radiation dose to as low as reasonably achievable (ALARA). [facility]: Dose Right [facility]: CareDose [facility]: Dose Right [facility]: Teradose 4D [facility]: [employer] RENAL FUNCTION: Not available. RADIATION DOSE: . LIMITATIONS: None. FINDINGS: LUNGS AND PLEURA: Small effusions, right greater than left volume on the right estimated < 500 cc. Perihilar and lower lobe bronchiectasis, several fluid-filled bronchioles demonstrating a n odular appearance. There are several subcentimeter nodules scattered in both lungs for which cannot exclude metastatic disease. No infiltrate. No honeycombing. HILAR AND MEDIASTINAL STRUCTURES: No identified masses or abnormal nodes. HEART AND VASCULAR STRUCTURES: No aneurysm or dissection. No central pulmonary emboli. No pericardi al effusion. HARDWARE: None in the chest. UPPER ABDOMEN: See separate report of the CT of the abdomen. THYROID AND OTHER SOFT TISSUES: No masses. No adenopathy. BONES: Nothing acute. OTHER: No other significant finding. IMPRESSION: Chronic interstitial lung disease. Small effusions. Several small pulmonary nodules fo r which cannot exclude metastatic disease. TECHNICAL DOCUMENTATION: JOB ID: [id number] Quality ID # [id number]: Final reports with documentation of one or more dose reduction techniques (e.g., Au tomated exposure control, adjustment of the mA and/or kV according to patient size, use of iterative reconstruction technique) 2010 [employer]- All Rights Reserved Reading location - IP/workstation name: [email or web address]
--- NOTE | 2020-01-11 10:50 | RADIOLOGY REPORT (SQ) ---
EXAM DESCRIPTION: CT ABD/PELVIS WITH IV ONLY IMAGES COMPLETED DATE/TIME: 01/11/2020 10:15 am REASON FOR STUDY: colon cancer, staging COMPARISON: None. TECHNIQUE: CT scan of the abdomen and pelvis performed using helical scanning technique with dynamic intravenous contrast injection. No oral contrast. Images reviewed with lung, soft tissue, and bone windows. Reconstructed coronal and sagittal MPR images reviewed. Delayed images for evaluation of the urinary system also acquired. All images stored on PACS. All CT scanners at this facility use dose modulation, iterative reconstruction, and/or weight based d osing when appropriate to reduce radiation dose to as low as reasonably achievable (ALARA). [facility]: Dose Right [facility]: CareDose [facility]: Dose Right [facility]: Teradose 4D [facility]: [employer] RENAL FUNCTION: Not available. RADIATION DOSE: CT Rad equipment meets quality standard of care and radiation dose reduction techniq ues were employed. CTDIvol: 4.7 - 5.0 mGy. DLP: 639 mGy-cm.. LIMITATIONS: None. FINDINGS: LOWER CHEST: See separate report of the CT of the chest. LIVER: A few small benign cysts. SPLEEN: Normal size. No focal lesions. PANCREAS: No masses. No significant calcifications. No adjacent inflammation or peripancreatic fluid collections. Pancreatic duct not dilated. GALLBLADDER: No identified stones by CT criteria. No inflammatory changes to suggest cholecystitis. ADRENAL GLANDS: No significant masses or asymmetry. RIGHT KIDNEY AND URETER: No solid masses. No significant calcifications. No hydronephrosis or hyd roureter. LEFT KIDNEY AND URETER: No solid masses. No significant calcifications. No hydronephrosis or hydr oureter. AORTA AND VESSELS: No aneurysm. RETROPERITONEUM: No retroperitoneal adenopathy, hemorrhage or masses. BOWEL AND PERITONEAL CAVITY: Large heterogeneous mass the right lower quadrant measuring 10.3 x 12.2 cm AP by transverse diameter. This appears to involve the cecum and ascending colon. There is a 3.6 x 5.1 cm cystic lesion along the leftward margin which is probably a lymphocele of no clinical signi ficance. APPENDIX: Not visualized. PELVIS: Moderate free fluid. No adenopathy. ABDOMINAL WALL: No masses. No hernias. BONES: Nothing acute. OTHER: No other significant finding. IMPRESSION: 1. Large primary colon cancer in the right lower quadrant. 2. No evidence of metastatic disease. TECHNICAL DOCUMENTATION: JOB ID: [id number] Quality ID # [id number]: Final reports with documentation of one or more dose reduction techniques (e.g., Au tomated exposure control, adjustment of the mA and/or kV according to patient size, use of iterative reconstruction technique) 2010 [employer]- All Rights Reserved Reading location - IP/workstation name: [email or web address]
[2020-01-11] MEDS ORDERED: PROPOFOL INJ 200 MG/20 ML VIAL IV ONE (11:06)
[2020-01-11] MEDS ORDERED: FENTANYL CITRATE INJ/PF 100 MCG/2 ML AMPUL ONE ×2 (11:06→14:53)
[2020-01-11] MEDS ORDERED: MIDAZOLAM 2 MG/2 ML INJ ONE (11:06)
[2020-01-11] MEDS ORDERED: MORPHINE SULFATE 10 MG/ML INJ ONE (11:06)
[2020-01-11] MEDS ORDERED: BUPIVACAINE HCL 0.25 % INJ/PF (2.5 MG/1 ML) 30 ML VIAL ONE (12:43)
[2020-01-11] MEDS ORDERED: CEFOXITIN 1 GM/D5W RTU 1 GM/50 ML RTUPB IV ONE (12:46)
[2020-01-11] MEDS ORDERED: BUPIVACAINE INJ/PF LIPOSOME/PF 266 MG/20 ML SDV ONE (13:08)
[2020-01-11] MEDS ORDERED: SUGAMMADEX SODIUM 200 MG/2 ML SDV IV ONE (13:41)
[2020-01-11] MEDS ORDERED: KETOROLAC TROMETHAMINE INJ/PF 30 MG/1 ML SDV IV PRN (13:52)
[2020-01-11] MEDS ORDERED: PHARMACY COMMUNICATION ORDER MC NR (14:00)
--- NOTE | 2020-01-11 14:06 | Operative Report ---
Operative Report DATE OF SURGERY: 01/11/20 PREOPERATIVE DIAGNOSIS: Large right cecal tumor POSTOPERATIVE DIAGNOSIS: Same OPERATION: 1. Exploratory laparotomy. 2. Right hemicolectomy with ileotransverse colostomy. 3. Deployment of Exparel anterior abdominal wall SURGEON: LORENA HUSSEIN 1ST BPM ANALYST: JUS MADRIGAL TISSUE REMOVED OR ALTERED: Right: COMPLICATIONS: None ESTIMATED BLOOD LOSS: 100 cc INTRAOPERATIVE FINDINGS: See below PROCEDURE: The patient was taken to the preop holding area to the main operating room and general anesthesia was induced. Left arm IV was aborted after a new right forearm IV was established. Lazar catheter was inserted with return of clear yellow urine. The abdomen was exposed, prepped and draped in sterile fashion with the arms abducted. Instrumentation was set up for exploratory laparotomy Surgical plan and surgical timeout were conducted. The skin was anesthetized with quarter percent Marcaine. A standard midline incision above and below the umbilicus was made with a #10 blade. Peritoneal cavity was sharply entered. There was some yellow fluid in the right upper quadrant but otherwise no pus, blood, bile. The falciform ligament was taken down using the LigaSure device. Because of the slackness of the anterior abdominal wall, and the massive right colon tumor, we did not insert a Rake retractor. Findings were significant for a large tumor involving the cecum. We divided a suitable location for transection of the transverse colon to the right of the middle colic vessels. The greater omentum was taken off of the transverse colon with electrocautery, then the transverse colon divided with a single firing of the MANI 55 stapler. I took the level of the dissection towards the duodenum. The duodenum was carefully taken off of the medial aspect of the transverse mesocolon. We relieved the attachments freeing the inferior surface of the gallbladder, and the hepatic flexure. The hepatic flexure was taken off of the retroperitoneal structures. We worked from cephalad to caudad opening up the white line of Toldt again using the LigaSure device. We now into the pelvis and elevated the posterior surface of the cecum off of the retroperitoneal structures, opening up the retroperitoneum using electrocautery. The appendix appeared normal. It came up with the cecum uneventfully. We opened up the retroperitoneum widely and visualized the right ureter in its entirety. Was kept out of harm's way. At this point we found a suitable location for division of the terminal ileum approximately 6 cm from the ileocecal valve. The terminal ileum was divided with a single firing, blue load, the MANI 55 stapler. Now we worked in a circumferential fashion freeing up all the retroperitoneal adhesions such that the right colon was elevated out of the abdomen. We now took the final attachments specifically the right and portions of the transverse mesocolon tween clamps and 0 Vicryl ties as well as use of LigaSure device. Blood loss was minimal. The specimen was passed off the table to pathology for permanent analysis, labeled right colon. We checked our vascular pedicles and they were intact without evidence of bleeding. We now brought the terminal ileum parallel to the transverse colon and completed a stapled anastomosis, first affixing the time mesenteric sides of the terminal ileum and the transverse colon to each other with three 2-0 Vicryl sutures. A colotomy and enterotomy were made with electrocautery. And the MANI 55 stapler was used to complete a common channel we now closed the common enterotomy and colotomy with a single firing of the TA 60 stapler. The anastomosis was patulous, without evidence of bleeding and under no tension. The mesenteric defect was closed with a running 2-0 Vicryl suture. We reinspected the pelvis, and the retroperitoneum and we checked for bleeding, there was none. We checked the positioning of the nasogastric tube and was found to be in good position. Sponge and needle counts were correct. The abdomen was closed with 2 double-stranded #1 PDS sutures, and skin approximated with rogelio. 20 cc of Exparel was deployed into the subcutaneous tissues. Patient tolerated the procedure well, extubated, and taken to the recovery room in stable condition. Of note there was some thick inspissated secretions upon extubation. The patient did not aspirate, however.
[2020-01-11] MEDS ORDERED: ONDANSETRON HCL INJ/PF 4 MG/2 ML SDV ONE (14:57)
[2020-01-11] MEDS ORDERED: PHENYLEPHRINE HCL INJ/PF 10 MG/1 ML SDV ONE (14:57)
[2020-01-11] MEDS ORDERED: ROCURONIUM BROMIDE INJ 50 MG/5 ML VIAL IV ONE (14:57)
[2020-01-11] MEDS ORDERED: DEXAMETHASONE SOD PHOSPHATE INJ 4 MG/1 ML VIAL ONE (14:57)
[2020-01-11] MEDS ORDERED: SUCCINYLCHOLINE CHLORIDE INJ 200 MG/10 ML VIAL ONE (14:57)
--- NOTE | 2020-01-11 15:17 | RADIOLOGY REPORT (SQ) ---
EXAM DESCRIPTION: KUB/ABDOMEN (SINGLE VIEW) IMAGES COMPLETED DATE/TIME: 01/11/2020 2:47 pm REASON FOR STUDY: Check Placement of NG Tube COMPARISON: None. NUMBER OF VIEWS: One view. TECHNIQUE: Supine radiographic image of the abdomen acquired. LIMITATIONS: None. FINDINGS: BOWEL GAS PATTERN: Normal bowel gas pattern. No dilated loops. CALCIFICATIONS: No suspicious calcifications. SOFT TISSUES: Midline skin rogelio. HARDWARE: Nasogastric tube tip overlying the stomach. BONES: No acute fracture. No worrisome bone lesions. OTHER: No other significant finding. IMPRESSION: Nasogastric tube in the stomach. TECHNICAL DOCUMENTATION: JOB ID: [id number] 2010 [employer]- All Rights Reserved Reading location - IP/workstation name: [email or web address]
[2020-01-11] MEDS: DEXTROSE 5%-NORMAL SALINE 1,000 ML IV PRN (16:14)
[2020-01-11] MEDS: AMPICILLIN SODIUM/SULBACTAM NA 3 GM in NORMAL SALINE 100 ML IV SCH ×2 (16:18→21:14)
--- NOTE | 2020-01-11 17:27 | EKG REPORT ---
SEVERITY:- ABNORMAL ECG - SINUS RHYTHM LEFT ANTERIOR FASCICULAR BLOCK : Confirmed by: Camila Montez MD 11-Jan-2020 17:26:56
[2020-01-11] MEDS: ACETAMINOPHEN 1,000 MG/100 ML RTUPB IV SCH (17:38)
[2020-01-11] MEDS ORDERED: ACETAMINOPHEN INJ/PF 1000 MG/100 ML SDV IV SCH (18:00)
[2020-01-11] MEDS: PANTOPRAZOLE SODIUM 40 MG TABLET.DR PO SCH (21:13)
[2020-01-12] MEDS: ACETAMINOPHEN 1,000 MG/100 ML RTUPB IV SCH ×4 (00:21→21:00)
[2020-01-12] MEDS: DEXTROSE 5%-NORMAL SALINE 1,000 ML IV PRN ×2 (03:26→19:00)
[2020-01-12] MEDS: AMPICILLIN SODIUM/SULBACTAM NA 3 GM in NORMAL SALINE 100 ML IV SCH ×3 (06:12→21:29)
[2020-01-12 07:15] LABS: BLOOD UREA NITROGEN 6 mg/dL (7-20); CALCIUM 7.5 mg/dL (8.4-10.2); CARBON DIOXIDE 29 mmol/L (22-30); CHLORIDE 105 mmol/L (98-107); GLUCOSE 192 mg/dL (75-110)
[2020-01-12 07:23] LABS: ANION GAP 3 (5-19)
[2020-01-12 07:52] LABS: HEMATOCRIT 43.5 % (36.0-47.0); MEAN CORPUSCULAR HEMOGLOBIN 29.5 pg (27.0-33.4); MEAN CORPUSCULAR HGB CONC 32.9 g/dL (32.0-36.0); MEAN CORPUSCULAR VOLUME 90 fl (80-97); PLATELET COUNT 225 10^3/uL (150-450); RED BLOOD COUNT 4.86 10^6/uL (3.72-5.28); RED CELL DISTRIBUTION WIDTH 14.8 % (11.5-14.0); WHITE BLOOD COUNT 14.6 10^3/uL (4.0-10.5)
[2020-01-12 07:53] LABS: HEMOGLOBIN 14.3 g/dL (12.0-15.5)
[2020-01-12] MEDS ORDERED: POTASSI CL 20 MEQ/50 ML RIDER 20 MEQ/50 ML RTUPB IV ONE (08:00)
--- NOTE | 2020-01-12 08:01 | PDOC PROGRESS REPORT ---
Subjective Progress Note for:: 01/12/20 Subjective:: Seems to have tolerated surgery very well, NG tube still placed but low output, so nursing going to talk to general surgery about whether it can come out today and patient could initiate something p.o. Reason For Visit: LOWER GI BLEED Physical Exam Vital Signs: Temp Pulse Resp BP Pulse Ox 97.3 F 83 20 119/66 100 01/12/20 03:44 01/12/20 03:44 01/12/20 03:44 01/12/20 03:44 01/12/20 05:50 Intake & Output 01/11/20 01/12/20 01/13/20 06:59 06:59 06:59 Intake Total 3240 4320 Output Total 0 2620 Balance 3240 1700 Weight 55.2 kg 61 kg General appearance: PRESENT: no acute distress, well-developed, well-nourished Head exam: PRESENT: atraumatic, normocephalic Eye exam: PRESENT: conjunctiva pink, EOMI, PERRLA. ABSENT: scleral icterus Ear exam: PRESENT: normal external ear exam Mouth exam: PRESENT: moist, tongue midline Neck exam: ABSENT: carotid bruit, JVD, lymphadenopathy, thyromegaly Respiratory exam: PRESENT: clear to auscultation aisha. ABSENT: rales, rhonchi, wheezes Cardiovascular exam: PRESENT: RRR. ABSENT: diastolic murmur, rubs, systolic murmur Pulses: PRESENT: normal dorsalis pedis pul Vascular exam: PRESENT: normal capillary refill GI/Abdominal exam: PRESENT: normal bowel sounds, soft. ABSENT: distended, guarding, mass, organolmegaly, rebound, tenderness Rectal exam: PRESENT: deferred Extremities exam: PRESENT: full ROM. ABSENT: calf tenderness, clubbing, pedal edema Neurological exam: PRESENT: alert, awake, oriented to person, oriented to place, oriented to time, oriented to situation, CN II-XII grossly intact. ABSENT: motor sensory deficit Psychiatric exam: PRESENT: appropriate affect, normal mood. ABSENT: homicidal i deation, suicidal ideation Skin exam: PRESENT: dry, intact, warm. ABSENT: cyanosis, rash Results Laboratory Results: 01/12/20 05:54 01/12/20 05:54 01/12/20 01/12/20 05:54 05:54 WBC 14.6 H RBC 4.86 Hgb 14.3 D Hct 43.5 MCV 90 MCH 29.5 MCHC 32.9 RDW 14.8 H Plt Count 225 Sodium 137.4 Potassium 3.0 L* Chloride 105 Carbon Dioxide 29 Anion Gap 3 L BUN 6 L Creatinine 0.70 Est GFR ( Amer) > 60 Glucose 192 H Calcium 7.5 L Impressions: Chest X-Ray 01/09/20 00:00 IMPRESSION: COPD. Trace right pleural effusion. Abdomen/Pelvis CT 01/11/20 08:00 IMPRESSION: 1. Large primary colon cancer in the right lower quadrant. 2. No evidence of metastatic disease. Chest CT 01/11/20 08:00 IMPRESSION: Chronic interstitial lung disease. Small effusions. Several small pulmonary nodules for which cannot exclude metastatic disease. KUB X-Ray 01/11/20 13:51 IMPRESSION: Nasogastric tube in the stomach. Assessment & Plan - Diagnosis (1) Mass of hepatic flexure of colon Is this a current diagnosis for this admission?: Yes Plan: Colon cancer most likely, still awaiting final pathology, no distant disease per imaging although there are small subcentimeter pulmonary nodules that are of unknown significance, will follow - Time Time Spent with patient: 15-24 minutes
[2020-01-12] MEDS: POTASSIUM CHLORIDE 20 MEQ/50 ML RTU IV SCH ×2 (09:35→12:15)
[2020-01-12] MEDS: FERROUS SULFATE 325 MG TABLET PO SCH (09:36)
[2020-01-12] MEDS: OMEGA-3 ACID ETHYL ESTERS 1 GM CAPSULE PO SCH (09:36)
[2020-01-12] MEDS: CALCIUM CARBONATE 600 MG TABLET PO SCH (09:36)
[2020-01-12] MEDS: PANTOPRAZOLE SODIUM 40 MG TABLET.DR PO SCH (09:37)
[2020-01-12] MEDS: MULTIVITAMIN TABLET PO SCH (09:37)
--- NOTE | 2020-01-12 09:53 | PDOC PROGRESS REPORT ---
Subjective Progress Note for:: 01/12/20 Subjective:: NABIL CORONADO is a 89 year old female with a past medical history of osteoarthritis and hypertension. Presents with approximately 5 days of loose stools followed by 4 episodes of bright red blood per rectum over the last 24 hours. She denies anticoagulation, antiplatelet therapy, previous episode or history of abdominal pain nausea or vomiting following a meal. She otherwise feels well and has had no further episode in the emergency department. She is found to have a mild anemia with a hemoglobin of 11.3 followed by 10.5 again repeated at 10.5 she is referred to the hospitalist for admission. She admits to weight loss of approximately 15 pounds in the last 6 months without effort. She denies change in stool caliber. Or recent GI screening. 01/10/2020. No acute events overnight. Comfortably resting in bed no apparent distress, pending upper and lower GI endoscopy, denies any melena, hematochezia or hematemesis. 01/11/2020. No acute events overnight. Patient is status post lower GI endoscopy unfortunately patient has a colonic mass most likely cancerous, surgery and oncology has been consulted. Patient is pending possible surgery today. Patient comfortably sitting in bed no apparent distress, alert and oriented x3, complaining of being hungry, denies any headache, shortness of breath, nausea, chest pain, abdominal pain, diarrhea, constipation or any urinary symptoms. Has not had any recurrence of her hematochezia. 01/12/2020. No acute events overnight. Patient is status post exploratory laparotomy and right colonic hemicolectomy. Comfortably sitting in her recliner, NG tube in place, no apparent distress, denies any headache, nausea, vomiting, diarrhea, constipation, chest pain, shortness of breath or any urinary symptoms. Reason For Visit: LOWER GI BLEED Physical Exam Vital Signs: Temp Pulse Resp BP Pulse Ox 97.3 F 90 18 125/69 95 01/12/20 08:17 01/12/20 08:17 01/12/20 08:17 01/12/20 08:17 01/12/20 08:17 Intake & Output 01/11/20 01/12/20 01/13/20 06:59 06:59 06:59 Intake Total 3240 4320 Output Total 0 2620 Balance 3240 1700 Weight 55.2 kg 61 kg General appearance: PRESENT: no acute distress, well-developed, well-nourished Head exam: PRESENT: atraumatic, normocephalic Neck exam: ABSENT: carotid bruit, JVD, lymphadenopathy, thyromegaly Respiratory exam: PRESENT: clear to auscultation aisha. ABSENT: rales, rhonchi, wheezes GI/Abdominal exam: PRESENT: normal bowel sounds, soft, other - Surgical wound clean.. ABSENT: distended, guarding, mass, organolmegaly, rebound, tenderness Neurological exam: PRESENT: alert, awake, oriented to person, oriented to place, oriented to time, oriented to situation, CN II-XII grossly intact. ABSENT: motor sensory deficit Skin exam: PRESENT: dry, intact, warm. ABSENT: cyanosis, rash Results Laboratory Results: 01/12/20 05:54 01/12/20 05:54 01/12/20 01/12/20 05:54 05:54 WBC 14.6 H RBC 4.86 Hgb 14.3 D Hct 43.5 MCV 90 MCH 29.5 MCHC 32.9 RDW 14.8 H Plt Count 225 Sodium 137.4 Potassium 3.0 L* Chloride 105 Carbon Dioxide 29 Anion Gap 3 L BUN 6 L Creatinine 0.70 Est GFR ( Amer) > 60 Glucose 192 H Calcium 7.5 L Impressions: Chest X-Ray 01/09/20 00:00 IMPRESSION: COPD. Trace right pleural effusion. Abdomen/Pelvis CT 01/11/20 08:00 IMPRESSION: 1. Large primary colon cancer in the right lower quadrant. 2. No evidence of metastatic disease. Chest CT 01/11/20 08:00 IMPRESSION: Chronic interstitial lung disease. Small effusions. Several small pulmonary nodules for which cannot exclude metastatic disease. KUB X-Ray 01/11/20 13:51 IMPRESSION: Nasogastric tube in the stomach. Assessment and Plan - Diagnosis (1) Mass of hepatic flexure of colon Is this a current diagnosis for this admission?: Yes Plan: POD 2 s/p exploratory laparotomy, right hemicolectomy with ileotransverse colostomy. Likely colonic adenocarcinoma. Pending biopsy results. Surgery and oncology on board. (2) Anemia Qualifiers: Other causes of anemia: acute posthemorrhagic Is this a current diagnosis for this admission?: Yes Plan: Acute iron deficiency anemia most likely due to GI bleed. Iron studies suggestive of severe iron deficiency anemia. s/p 1 unit PRBC on admission. H&H stable. Denies any melena, hematochezia or hematemesis. Continue oral ferrous sulfate. Monitor H&H. Monitor for bleeding. Supportive transfusions. (3) COPD (chronic obstructive pulmonary disease) Is this a current diagnosis for this admission?: Yes Plan: History of COPD and former smoker. Does not seem to be acutely exacerbated. SPO2 WNL on RA. Continue nebs as needed. Continue supplemental oxygen as needed. (4) GI bleed Qualifiers: GI bleed type/associated pathology: unspecified gastrointestinal hemorrhage type Qualified Code(s): K92.2 - Gastrointestinal hemorrhage, unspecified Is this a current diagnosis for this admission?: Yes Plan: Secondary to colonic mass. s/p 1 unit PRBC on admission. H&H stable. Denies any melena, hematochezia or hematemesis. Continue PPIs. Monitor H&H. Supportive transfusions. (5) Hypertension Is this a current diagnosis for this admission?: Yes Plan: Controlled. Hold Norvasc r/t soft blood pressures; resume once SBP consistently >130 (6) Leukocytosis Is this a current diagnosis for this admission?: Yes Plan: Improving. Likely reactive secondary to GI bleed. No sign of systemic infection. CXR negative for acute fidings. UA negative Cultures negative since admission. Follow up CBC; if continue to trend upwards, consider start of IV Cipro/Flagyl (7) Hypokalemia Is this a current diagnosis for this admission?: Yes Plan: Likely due to GI losses. No acute EKG changes. Replace as needed. Monitor electrolytes and replace as needed. Potassium level tomorrow.
--- NOTE | 2020-01-12 09:57 | PDOC PROGRESS REPORT ---
Subjective Progress Note for:: 01/12/20 Subjective:: feels ok, sitting up in chair Reason For Visit: LOWER GI BLEED Physical Exam Vital Signs: Temp Pulse Resp BP Pulse Ox 97.3 F 90 18 125/69 95 01/12/20 08:17 01/12/20 08:17 01/12/20 08:17 01/12/20 08:17 01/12/20 08:17 Intake & Output 01/11/20 01/12/20 01/13/20 06:59 06:59 06:59 Intake Total 3240 4320 Output Total 0 2620 Balance 3240 1700 Weight 55.2 kg 61 kg General appearance: PRESENT: no acute distress Head exam: PRESENT: normocephalic Eye exam: PRESENT: EOMI Ear exam: PRESENT: normal external ear exam Mouth exam: PRESENT: moist Neck exam: PRESENT: full ROM Respiratory exam: PRESENT: clear to auscultation aisha Cardiovascular exam: PRESENT: RRR Pulses: PRESENT: normal radial pulses, normal femoral pulses Breast: PRESENT: Normal GI/Abdominal exam: PRESENT: soft, other Rectal exam: PRESENT: deferred Extremities exam: PRESENT: full ROM Musculoskeletal exam: PRESENT: full ROM Neurological exam: PRESENT: alert, awake, oriented to person, oriented to place Psychiatric exam: PRESENT: appropriate affect Skin exam: PRESENT: dry Results Laboratory Results: 01/12/20 05:54 01/12/20 05:54 01/12/20 01/12/20 05:54 05:54 WBC 14.6 H RBC 4.86 Hgb 14.3 D Hct 43.5 MCV 90 MCH 29.5 MCHC 32.9 RDW 14.8 H Plt Count 225 Sodium 137.4 Potassium 3.0 L* Chloride 105 Carbon Dioxide 29 Anion Gap 3 L BUN 6 L Creatinine 0.70 Est GFR ( Amer) > 60 Glucose 192 H Calcium 7.5 L Impressions: Chest X-Ray 01/09/20 00:00 IMPRESSION: COPD. Trace right pleural effusion. Abdomen/Pelvis CT 01/11/20 08:00 IMPRESSION: 1. Large primary colon cancer in the right lower quadrant. 2. No evidence of metastatic disease. Chest CT 01/11/20 08:00 IMPRESSION: Chronic interstitial lung disease. Small effusions. Several small pulmonary nodules for which cannot exclude metastatic disease. KUB X-Ray 01/11/20 13:51 IMPRESSION: Nasogastric tube in the stomach. Assessment & Plan - Plan Summary Plan Summary: doing will pod 1 up in chair ng iwth min op will start ice chips cont ng 1 more day\ awaiting return of bowel function
[2020-01-12] MEDS ORDERED: MAGNESIUM SULFATE/D5W 1 GM/100 ML RTUPB IV ONE (15:00)
[2020-01-13] MEDS: DEXTROSE 5%-NORMAL SALINE 1,000 ML IV PRN ×3 (02:00→21:27)
[2020-01-13] MEDS: ACETAMINOPHEN 1,000 MG/100 ML RTUPB IV SCH ×4 (03:10→21:26)
[2020-01-13] MEDS: AMPICILLIN SODIUM/SULBACTAM NA 3 GM in NORMAL SALINE 100 ML IV SCH (06:27)
[2020-01-13 06:41] LABS: ABSOLUTE EOSINOPHILS # (AUTO) 0.1 10^3/uL (0.0-0.6); ABSOLUTE LYMPHOCYTES (AUTO) 1.7 10^3/uL (0.5-4.7); ABSOLUTE MONOCYTES (AUTO) 0.8 10^3/uL (0.1-1.4); ABSOLUTE NEUT (AUTO) 13.7 10^3/uL (1.7-8.2); BASOPHILS % (AUTO) 0.3 % (0-2); EOSINOPHILS % (AUTO) 0.5 % (0-6); HEMATOCRIT 33.6 % (36.0-47.0); LYMPHOCYTES % (AUTO) 10.7 % (13-45); MEAN CORPUSCULAR HEMOGLOBIN 29.3 pg (27.0-33.4); MEAN CORPUSCULAR HGB CONC 32.7 g/dL (32.0-36.0); MEAN CORPUSCULAR VOLUME 90 fl (80-97); MONOCYTES % (AUTO) 4.6 % (3-13); PLATELET COUNT 323 10^3/uL (150-450); RED BLOOD COUNT 3.76 10^6/uL (3.72-5.28); RED CELL DISTRIBUTION WIDTH 14.8 % (11.5-14.0); SEGMENTED NEUTROPHILS % (AUTO) 83.9 % (42-78); TOTAL CELLS COUNTED % (AUTO) 100 %; WHITE BLOOD COUNT 16.3 10^3/uL (4.0-10.5)
[2020-01-13 06:58] LABS: ANION GAP 5 (5-19); BLOOD UREA NITROGEN 6 mg/dL (7-20); CALCIUM 7.6 mg/dL (8.4-10.2); CARBON DIOXIDE 26 mmol/L (22-30); CHLORIDE 108 mmol/L (98-107); GLUCOSE 127 mg/dL (75-110)
[2020-01-13 07:04] LABS: POTASSIUM 2.9 mmol/L (3.6-5.0)
[2020-01-13] MEDS ORDERED: MAGNESIUM SULFATE/D5W 1 GM/100 ML RTUPB IV ONE (07:24)
[2020-01-13] MEDS: POTASSI CL 20 MEQ/50 ML RIDER 20 MEQ/50 ML RTUPB IV SCH ×3 (08:06→13:22)
[2020-01-13] MEDS: FERROUS SULFATE 325 MG TABLET PO SCH (09:45)
[2020-01-13] MEDS: OMEGA-3 ACID ETHYL ESTERS 1 GM CAPSULE PO SCH (09:45)
[2020-01-13] MEDS: MULTIVITAMIN TABLET PO SCH (09:45)
[2020-01-13] MEDS: CALCIUM CARBONATE 600 MG TABLET PO SCH (09:45)
[2020-01-13] MEDS ORDERED: HYDRALAZINE HCL INJ/PF 20 MG/1 ML SDV IV PRN (09:50)
--- NOTE | 2020-01-13 09:53 | PDOC PROGRESS REPORT ---
Subjective Progress Note for:: 01/13/20 Subjective:: NABIL CORONADO is a 89 year old female with a past medical history of osteoarthritis and hypertension. Presents with approximately 5 days of loose stools followed by 4 episodes of bright red blood per rectum over the last 24 hours. She denies anticoagulation, antiplatelet therapy, previous episode or history of abdominal pain nausea or vomiting following a meal. She otherwise feels well and has had no further episode in the emergency department. She is found to have a mild anemia with a hemoglobin of 11.3 followed by 10.5 again repeated at 10.5 she is referred to the hospitalist for admission. She admits to weight loss of approximately 15 pounds in the last 6 months without effort. She denies change in stool caliber. Or recent GI screening. 01/10/2020. No acute events overnight. Comfortably resting in bed no apparent distress, pending upper and lower GI endoscopy, denies any melena, hematochezia or hematemesis. 01/11/2020. No acute events overnight. Patient is status post lower GI endoscopy unfortunately patient has a colonic mass most likely cancerous, surgery and oncology has been consulted. Patient is pending possible surgery today. Patient comfortably sitting in bed no apparent distress, alert and oriented x3, complaining of being hungry, denies any headache, shortness of breath, nausea, chest pain, abdominal pain, diarrhea, constipation or any urinary symptoms. Has not had any recurrence of her hematochezia. 01/12/2020. No acute events overnight. Patient is status post exploratory laparotomy and right colonic hemicolectomy. Comfortably sitting in her recliner, NG tube in place, no apparent distress, denies any headache, nausea, vomiting, diarrhea, constipation, chest pain, shortness of breath or any urinary symptoms. 01/13/2020. No acute events overnight. Patient currently resting in bed no apparent distress, complaining of mild diffuse abdominal pain, has not had a bowel movement or passed flatus. Denies any shortness of breath, chest pain, nausea, vomiting, diarrhea, constipation or any urinary symptoms. Reason For Visit: LOWER GI BLEED Physical Exam Vital Signs: Temp Pulse Resp BP Pulse Ox 97.5 F 96 18 145/77 H 94 01/13/20 07:45 01/13/20 07:45 01/13/20 07:45 01/13/20 07:45 01/13/20 07:45 Intake & Output 01/12/20 01/13/20 01/14/20 06:59 06:59 06:59 Intake Total 4320 2800 543 Output Total 2620 1425 Balance 1700 1375 543 Weight 61 kg 60.8 kg General appearance: PRESENT: no acute distress, well-developed, well-nourished Head exam: PRESENT: atraumatic, normocephalic Respiratory exam: PRESENT: clear to auscultation aisha. ABSENT: rales, rhonchi, wheezes GI/Abdominal exam: PRESENT: normal bowel sounds, soft, tenderness. ABSENT: distended, guarding, mass, organolmegaly, rebound Neurological exam: PRESENT: alert, awake, oriented to person, oriented to place, oriented to time, oriented to situation, CN II-XII grossly intact. ABSENT: mo tor sensory deficit Results Laboratory Results: 01/13/20 06:01 01/13/20 06:01 01/12/20 01/13/20 01/13/20 05:54 06:01 06:01 WBC 16.3 H RBC 3.76 Hgb 11.0 L D Hct 33.6 L MCV 90 MCH 29.3 MCHC 32.7 RDW 14.8 H Plt Count 323 Seg Neutrophils % 83.9 H Sodium 138.9 Potassium 2.9 L* Chloride 108 H Carbon Dioxide 26 Anion Gap 5 BUN 6 L Creatinine 0.68 Est GFR ( Amer) > 60 Glucose 127 H Calcium 7.6 L Magnesium 1.5 L 1.8 Impressions: Chest X-Ray 01/09/20 00:00 IMPRESSION: COPD. Trace right pleural effusion. Abdomen/Pelvis CT 01/11/20 08:00 IMPRESSION: 1. Large primary colon cancer in the right lower quadrant. 2. No evidence of metastatic disease. Chest CT 01/11/20 08:00 IMPRESSION: Chronic interstitial lung disease. Small effusions. Several small pulmonary nodules for which cannot exclude metastatic disease. KUB X-Ray 01/11/20 13:51 IMPRESSION: Nasogastric tube in the stomach. Assessment and Plan - Diagnosis (1) Mass of hepatic flexure of colon Is this a current diagnosis for this admission?: Yes Plan: POD 3 s/p exploratory laparotomy, right hemicolectomy with ileotransverse co lostomy. Likely colonic adenocarcinoma. Pending biopsy results. Surgery and oncology on board. (2) Anemia Qualifiers: Other causes of anemia: acute posthemorrhagic Is this a current diagnosis for this admission?: Yes Plan: Acute iron deficiency anemia most likely due to GI bleed. Iron studies suggestive of severe iron deficiency anemia. s/p 1 unit PRBC on admission. H&H stable. Denies any melena, hematochezia or hematemesis. Continue oral ferrous sulfate. Monitor H&H. Monitor for bleeding. Supportive transfusions. (3) COPD (chronic obstructive pulmonary disease) Is this a current diagnosis for this admission?: Yes Plan: History of COPD and former smoker. Does not seem to be acutely exacerbated. SPO2 WNL on RA. Continue nebs as needed. Continue supplemental oxygen as needed. (4) GI bleed Qualifiers: GI bleed type/associated pathology: unspecified gastrointestinal hemorrhage type Qualified Code(s): K92.2 - Gastrointestinal hemorrhage, unspecified Is this a current diagnosis for this admission?: Yes Plan: Secondary to colonic mass. s/p 1 unit PRBC on admission. H&H stable. Denies any melena, hematochezia or hematemesis. Continue PPIs. Monitor H&H. Supportive transfusions. (5) Hypertension Is this a current diagnosis for this admission?: Yes Plan: Controlled. Hold Norvasc r/t soft blood pressures; resume once SBP consistently >130 (6) Leukocytosis Is this a current diagnosis for this admission?: Yes Plan: Improving. Likely reactive secondary to GI bleed. No sign of systemic infection. CXR negative for acute fidings. UA negative Cultures negative since admission. Follow up CBC; if continue to trend upwards, consider start of IV Cipro/Flagyl (7) Hypokalemia Is this a current diagnosis for this admission?: Yes Plan: Likely due to GI losses. No acute EKG changes. Replace as needed. Monitor electrolytes and replace as needed. Potassium level tomorrow.
--- NOTE | 2020-01-13 10:08 | PDOC PROGRESS REPORT ---
Subjective Progress Note for:: 01/13/20 Subjective:: No acute events overnight, apparently prior to current nursing shift there was 750 mL out of the NG tube. Not much output this current nursing shift. No gas passed yet. Reason For Visit: LOWER GI BLEED Physical Exam Vital Signs: Temp Pulse Resp BP Pulse Ox 97.5 F 96 18 145/77 H 94 01/13/20 07:45 01/13/20 07:45 01/13/20 07:45 01/13/20 07:45 01/13/20 07:45 Intake & Output 01/12/20 01/13/20 01/14/20 06:59 06:59 06:59 Intake Total 4320 2800 543 Output Total 2620 1425 Balance 1700 1375 543 Weight 61 kg 60.8 kg General appearance: PRESENT: no acute distress, well-developed, well-nourished Head exam: PRESENT: atraumatic, normocephalic Eye exam: PRESENT: conjunctiva pink, EOMI, PERRLA. ABSENT: scleral icterus Ear exam: PRESENT: normal external ear exam Mouth exam: PRESENT: moist, tongue midline Neck exam: ABSENT: carotid bruit, JVD, lymphadenopathy, thyromegaly Respiratory exam: PRESENT: clear to auscultation aisha. ABSENT: rales, rhonchi, wheezes Cardiovascular exam: PRESENT: RRR. ABSENT: diastolic murmur, rubs, systolic murmur Pulses: PRESENT: normal dorsalis pedis pul Vascular exam: PRESENT: normal capillary refill GI/Abdominal exam: PRESENT: normal bowel sounds, soft. ABSENT: distended, guarding, mass, organolmegaly, rebound, tenderness Rectal exam: PRESENT: deferred Extremities exam: PRESENT: full ROM. ABSENT: calf tenderness, clubbing, pedal edema Neurological exam: PRESENT: alert, awake, oriented to person, oriented to place, oriented to time, oriented to situation, CN II-XII grossly intact. ABSENT: motor sensory deficit Psychiatric exam: PRESENT: appropriate affect, normal mood. ABSENT: homicidal ideation, suicidal ideation Skin exam: PRESENT: dry, intact, warm. ABSENT: cyanosis, rash Results Laboratory Results: 01/13/20 06:01 01/13/20 06:01 01/12/20 01/13/20 01/13/20 05:54 06:01 06:01 WBC 16.3 H RBC 3.76 Hgb 11.0 L D Hct 33.6 L MCV 90 MCH 29.3 MCHC 32.7 RDW 14.8 H Plt Count 323 Seg Neutrophils % 83.9 H Sodium 138.9 Potassium 2.9 L* Chloride 108 H Carbon Dioxide 26 Anion Gap 5 BUN 6 L Creatinine 0.68 Est GFR ( Amer) > 60 Glucose 127 H Calcium 7.6 L Magnesium 1.5 L 1.8 Impressions: Chest X-Ray 01/09/20 00:00 IMPRESSION: COPD. Trace right pleural effusion. Abdomen/Pelvis CT 01/11/20 08:00 IMPRESSION: 1. Large primary colon cancer in the right lower quadrant. 2. No evidence of metastatic disease. Chest CT 01/11/20 08:00 IMPRESSION: Chronic interstitial lung disease. Small effusions. Several small pulmonary nodules for which cannot exclude metastatic disease. KUB X-Ray 01/11/20 13:51 IMPRESSION: Nasogastric tube in the stomach. Assessment & Plan - Diagnosis (1) Cancer of right colon Is this a current diagnosis for this admission?: Yes Plan: Right colon cancer, awaiting pathology, had long discussion with patient about the cancer as well as what is keeping the NG tube in and what to expect in the next few days. Will discuss with family members as well over the phone. - Time Time Spent with patient: 35 or more minutes
[2020-01-13] MEDS: AMLODIPINE BESYLATE 5 MG TABLET PO SCH (11:08)
--- NOTE | 2020-01-13 13:45 | PDOC PROGRESS REPORT ---
Subjective Progress Note for:: 01/13/20 Reason For Visit: LOWER GI BLEED Physical Exam Vital Signs: Temp Pulse Resp BP Pulse Ox 97.7 F 90 14 133/71 H 95 01/13/20 11:55 01/13/20 11:55 01/13/20 11:55 01/13/20 11:55 01/13/20 11:55 Intake & Output 01/12/20 01/13/20 01/14/20 06:59 06:59 06:59 Intake Total 4320 2800 1393 Output Total 2620 1425 Balance 1700 1375 1393 Weight 61 kg 60.8 kg Results Laboratory Results: 01/13/20 06:01 01/13/20 06:01 01/13/20 01/13/20 06:01 06:01 WBC 16.3 H RBC 3.76 Hgb 11.0 L D Hct 33.6 L MCV 90 MCH 29.3 MCHC 32.7 RDW 14.8 H Plt Count 323 Seg Neutrophils % 83.9 H Sodium 138.9 Potassium 2.9 L* Chloride 108 H Carbon Dioxide 26 Anion Gap 5 BUN 6 L Creatinine 0.68 Est GFR ( Amer) > 60 Glucose 127 H Calcium 7.6 L Magnesium 1.8 Impressions: Chest X-Ray 01/09/20 00:00 IMPRESSION: COPD. Trace right pleural effusion. Abdomen/Pelvis CT 01/11/20 08:00 IMPRESSION: 1. Large primary colon cancer in the right lower quadrant. 2. No evidence of metastatic disease. Chest CT 01/11/20 08:00 IMPRESSION: Chronic interstitial lung disease. Small effusions. Several small pulmonary nodules for which cannot exclude metastatic disease. KUB X-Ray 01/11/20 13:51 IMPRESSION: Nasogastric tube in the stomach. Assessment & Plan - Diagnosis (1) Cancer of right colon Is this a current diagnosis for this admission?: Yes - Plan Summary Plan Summary: This is an 89-year-old female status post open right hemicolectomy for cancer. The patient is doing well today. Her pain is controlled. Her incision is clean, dry, and intact. She denies any flatus at this time. I will maintain her NG tube in place for now. NG out, once her bowel function returns. Out of bed to chair. Surgery will follow with you.
[2020-01-14] MEDS: ACETAMINOPHEN 1,000 MG/100 ML RTUPB IV SCH ×3 (04:12→15:29)
[2020-01-14] MEDS: DEXTROSE 5%-NORMAL SALINE 1,000 ML IV PRN ×3 (04:13→21:36)
[2020-01-14 06:01] LABS: ABSOLUTE BASOPHILS # (AUTO) 0.1 10^3/uL (0.0-0.2); ABSOLUTE EOSINOPHILS # (AUTO) 0.4 10^3/uL (0.0-0.6); ABSOLUTE LYMPHOCYTES (AUTO) 1.7 10^3/uL (0.5-4.7); ABSOLUTE MONOCYTES (AUTO) 0.8 10^3/uL (0.1-1.4); ABSOLUTE NEUT (AUTO) 11.3 10^3/uL (1.7-8.2); BASOPHILS % (AUTO) 0.7 % (0-2); EOSINOPHILS % (AUTO) 2.5 % (0-6); HEMOGLOBIN 11.1 g/dL (12.0-15.5); MEAN CORPUSCULAR HEMOGLOBIN 29.2 pg (27.0-33.4); MEAN CORPUSCULAR HGB CONC 32.5 g/dL (32.0-36.0); MEAN CORPUSCULAR VOLUME 90 fl (80-97); MONOCYTES % (AUTO) 5.3 % (3-13); PLATELET COUNT 344 10^3/uL (150-450); RED BLOOD COUNT 3.79 10^6/uL (3.72-5.28); SEGMENTED NEUTROPHILS % (AUTO) 79.5 % (42-78); TOTAL CELLS COUNTED % (AUTO) 100 %; WHITE BLOOD COUNT 14.2 10^3/uL (4.0-10.5)
[2020-01-14 06:33] LABS: BLOOD UREA NITROGEN 5 mg/dL (7-20); CALCIUM 7.3 mg/dL (8.4-10.2); CARBON DIOXIDE 29 mmol/L (22-30); CHLORIDE 106 mmol/L (98-107); GLUCOSE 121 mg/dL (75-110); POTASSIUM 3.1 mmol/L (3.6-5.0)
[2020-01-14 06:37] LABS: ANION GAP 2 (5-19)
[2020-01-14] MEDS ORDERED: MAGNESIUM SULFATE/D5W 1 GM/100 ML RTUPB IV ONE (09:29)
[2020-01-14] MEDS ORDERED: CALCIUM GLUCONATE 1000 MG/10 ML INJ IV ONE (09:30)
--- NOTE | 2020-01-14 09:30 | PDOC PROGRESS REPORT ---
Subjective Progress Note for:: 01/14/20 Subjective:: NABIL CORONADO is a 89 year old female with a past medical history of osteoarthritis and hypertension. Presents with approximately 5 days of loose stools followed by 4 episodes of bright red blood per rectum over the last 24 hours. She denies anticoagulation, antiplatelet therapy, previous episode or history of abdominal pain nausea or vomiting following a meal. She otherwise feels well and has had no further episode in the emergency department. She is found to have a mild anemia with a hemoglobin of 11.3 followed by 10.5 again repeated at 10.5 she is referred to the hospitalist for admission. She admits to weight loss of approximately 15 pounds in the last 6 months without effort. She denies change in stool caliber. Or recent GI screening. 01/10/2020. No acute events overnight. Comfortably resting in bed no apparent distress, pending upper and lower GI endoscopy, denies any melena, hematochezia or hematemesis. 01/11/2020. No acute events overnight. Patient is status post lower GI endoscopy unfortunately patient has a colonic mass most likely cancerous, surgery and oncology has been consulted. Patient is pending possible surgery today. Patient comfortably sitting in bed no apparent distress, alert and oriented x3, complaining of being hungry, denies any headache, shortness of breath, nausea, chest pain, abdominal pain, diarrhea, constipation or any urinary symptoms. Has not had any recurrence of her hematochezia. 01/12/2020. No acute events overnight. Patient is status post exploratory laparotomy and right colonic hemicolectomy. Comfortably sitting in her recliner, NG tube in place, no apparent distress, denies any headache, nausea, vomiting, diarrhea, constipation, chest pain, shortness of breath or any urinary symptoms. 01/13/2020. No acute events overnight. Patient currently resting in bed no apparent distress, complaining of mild diffuse abdominal pain, has not had a bowel movement or passed flatus. Denies any shortness of breath, chest pain, nausea, vomiting, diarrhea, constipation or any urinary symptoms. 01/14/2020. No acute events overnight. Patient has not passed flatus or had a bowel movement, able to tolerate ice chips, complaining of being hungry, denies any abdominal pain, denies any chest pain, nausea, vomiting, diarrhea, constipation or any urinary symptoms. Reason For Visit: LOWER GI BLEED Physical Exam Vital Signs: Temp Pulse Resp BP Pulse Ox 97.4 F 91 17 138/85 H 97 01/14/20 07:21 01/14/20 07:21 01/14/20 07:21 01/14/20 07:21 01/14/20 07:21 Intake & Output 01/13/20 01/14/20 01/15/20 06:59 06:59 06:59 Intake Total 2800 3743 Output Total 1425 2750 Balance 1375 993 Weight 60.8 kg 59.5 kg General appearance: PRESENT: no acute distress, well-developed, well-nourished Head exam: PRESENT: atraumatic, normocephalic Respiratory exam: PRESENT: clear to auscultation aisha. ABSENT: rales, rhonchi, wheezes Cardiovascular exam: PRESENT: RRR. ABSENT: diastolic murmur, rubs, systolic murmur GI/Abdominal exam: PRESENT: normal bowel sounds, soft, tenderness. ABSENT: distended, guarding, mass, organolmegaly, rebound Neurological exam: PRESENT: alert, awake, oriented to person, oriented to place, oriented to time, oriented to situation, CN II-XII grossly intact. ABSENT: motor sensory deficit Skin exam: PRESENT: dry, intact, warm. ABSENT: cyanosis, rash Results Laboratory Results: 01/14/20 05:23 01/14/20 05:23 01/14/20 01/14/20 05:23 05:23 WBC 14.2 H RBC 3.79 Hgb 11.1 L Hct 34.0 L MCV 90 MCH 29.2 MCHC 32.5 RDW 15.0 H Plt Count 344 Seg Neutrophils % 79.5 H Sodium 137.0 Potassium 3.1 L Chloride 106 Carbon Dioxide 29 Anion Gap 2 L BUN 5 L Creatinine 0.55 Est GFR ( Amer) > 60 Glucose 121 H Calcium 7.3 L Magnesium 1.8 01/09/20 08:50 Blood Blood Culture - Final NO GROWTH IN 5 DAYS 01/09/20 08:36 Blood Blood Culture - Final NO GROWTH IN 5 DAYS Impressions: Chest X-Ray 01/09/20 00:00 IMPRESSION: COPD. Trace right pleural effusion. Abdomen/Pelvis CT 01/11/20 08:00 IMPRESSION: 1. Large primary colon cancer in the right lower quadrant. 2. No evidence of metastatic disease. Chest CT 01/11/20 08:00 IMPRESSION: Chronic interstitial lung disease. Small effusions. Several small pulmonary nodules for which cannot exclude metastatic disease. KUB X-Ray 01/11/20 13:51 IMPRESSION: Nasogastric tube in the stomach. Assessment and Plan - Diagnosis (1) Mass of hepatic flexure of colon Is this a current diagnosis for this admission?: Yes Plan: POD 4 s/p exploratory laparotomy, right hemicolectomy with ileotransverse colostomy. Likely colonic adenocarcinoma. Pending biopsy results. Surgery and oncology on board. (2) Anemia Qualifiers: Other causes of anemia: acute posthemorrhagic Is this a current diagnosis for this admission?: Yes Plan: Acute iron deficiency anemia most likely due to GI bleed. Iron studies suggestive of severe iron deficiency anemia. s/p 1 unit PRBC on admission. H&H stable. Denies any melena, hematochezia or hematemesis. Continue oral ferrous sulfate. Monitor H&H. Monitor for bleeding. Supportive transfusions. (3) COPD (chronic obstructive pulmonary disease) Is this a current diagnosis for this admission?: Yes Plan: History of COPD and former smoker. Does not seem to be acutely exacerbated. SPO2 WNL on RA. Continue nebs as needed. Continue supplemental oxygen as needed. (4) GI bleed Qualifiers: GI bleed type/associated pathology: unspecified gastrointestinal hemorrhage type Qualified Code(s): K92.2 - Gastrointestinal hemorrhage, unspecified Is this a current diagnosis for this admission?: Yes Plan: Secondary to colonic mass. s/p 1 unit PRBC on admission. H&H stable. Denies any melena, hematochezia or hematemesis. Continue PPIs. Monitor H&H. Supportive transfusions. (5) Hypertension Is this a current diagnosis for this admission?: Yes Plan: Controlled. Hold Norvasc r/t soft blood pressures; resume once SBP consistently >130 (6) Leukocytosis Is this a current diagnosis for this admission?: Yes Plan: Improving. Likely reactive secondary to GI bleed. No sign of systemic infection. CXR negative for acute fidings. UA negative Cultures negative since admission. Follow up CBC; if continue to trend upwards, consider start of IV Cipro/Flagyl (7) Hypokalemia Is this a current diagnosis for this admission?: Yes Plan: Likely due to GI losses. No acute EKG changes. Replace as needed. Monitor electrolytes and replace as needed. Potassium level tomorrow.
[2020-01-14] MEDS ORDERED: CALCIUM GLUCONATE 1 GM/NS 50 ML RTU IV ONE ×2 (10:00→16:00)
[2020-01-14] MEDS: CALCIUM CARBONATE 600 MG TABLET PO SCH (10:14)
[2020-01-14] MEDS: OMEGA-3 ACID ETHYL ESTERS 1 GM CAPSULE PO SCH (10:14)
[2020-01-14] MEDS: FERROUS SULFATE 325 MG TABLET PO SCH (10:14)
[2020-01-14] MEDS: AMLODIPINE BESYLATE 5 MG TABLET PO SCH (10:15)
[2020-01-14] MEDS: MULTIVITAMIN TABLET PO SCH (10:15)
[2020-01-14] MEDS: POTASSI CL 20 MEQ/50 ML RIDER 20 MEQ/50 ML RTUPB IV SCH ×2 (13:10→14:58)
[2020-01-14] MEDS: HEPARIN SOD (PORCINE) 5,000 UNIT/ML 1 ML VIAL SUBCUT SCH ×2 (15:01→21:36)
--- NOTE | 2020-01-14 16:12 | PDOC PROGRESS REPORT ---
Subjective Progress Note for:: 01/14/20 Reason For Visit: LOWER GI BLEED Physical Exam Vital Signs: Temp Pulse Resp BP Pulse Ox 97.7 F 77 16 128/86 H 95 01/14/20 11:23 01/14/20 14:00 01/14/20 11:23 01/14/20 11:23 01/14/20 11:23 Intake & Output 01/13/20 01/14/20 01/15/20 06:59 06:59 06:59 Intake Total 2800 3743 1345 Output Total 1425 2750 Balance 1912 590 9697 Weight 60.8 kg 59.5 kg Results Laboratory Results: 01/14/20 05:23 01/14/20 05:23 01/14/20 01/14/20 05:23 05:23 WBC 14.2 H RBC 3.79 Hgb 11.1 L Hct 34.0 L MCV 90 MCH 29.2 MCHC 32.5 RDW 15.0 H Plt Count 344 Seg Neutrophils % 79.5 H Sodium 137.0 Potassium 3.1 L Chloride 106 Carbon Dioxide 29 Anion Gap 2 L BUN 5 L Creatinine 0.55 Est GFR ( Amer) > 60 Glucose 121 H Calcium 7.3 L Magnesium 1.8 01/09/20 08:50 Blood Blood Culture - Final NO GROWTH IN 5 DAYS 01/09/20 08:36 Blood Blood Culture - Final NO GROWTH IN 5 DAYS Impressions: Chest X-Ray 01/09/20 00:00 IMPRESSION: COPD. Trace right pleural effusion. Abdomen/Pelvis CT 01/11/20 08:00 IMPRESSION: 1. Large primary colon cancer in the right lower quadrant. 2. No evidence of metastatic disease. Chest CT 01/11/20 08:00 IMPRESSION: Chronic interstitial lung disease. Small effusions. Several small pulmonary nodules for which cannot exclude metastatic disease. KUB X-Ray 01/11/20 13:51 IMPRESSION: Nasogastric tube in the stomach. Assessment & Plan - Diagnosis (1) Cancer of right colon Is this a current diagnosis for this admission?: Yes - Plan Summary Plan Summary: This is an 89-year-old female status post open right hemicolectomy for cancer. The patient is doing well today. Her pain is controlled. Her incision is clean, dry, and intact. She reports passing flatus today. I will remove her NG tube. Ok for liquids this afternoon. Out of bed to chair. Surgery will follow with you.
[2020-01-15] MEDS: DEXTROSE 5%-NORMAL SALINE 1,000 ML IV PRN (05:25)
[2020-01-15] MEDS: HEPARIN SOD (PORCINE) 5,000 UNIT/ML 1 ML VIAL SUBCUT SCH ×3 (05:25→21:24)
[2020-01-15 06:37] LABS: ALKALINE PHOSPHATASE 100 U/L (38-126); ANION GAP 5 (5-19); ASPARTATE AMINO TRANSFERASE 22 U/L (14-36); BILIRUBIN,TOTAL 0.4 mg/dL (0.2-1.3); BLOOD UREA NITROGEN 5 mg/dL (7-20); CALCIUM 7.7 mg/dL (8.4-10.2); CARBON DIOXIDE 26 mmol/L (22-30); CHLORIDE 106 mmol/L (98-107); GLUCOSE 112 mg/dL (75-110); POTASSIUM 3.3 mmol/L (3.6-5.0); TOTAL PROTEIN 4.8 g/dL (6.3-8.2)
--- NOTE | 2020-01-15 08:07 | PDOC PROGRESS REPORT ---
Subjective Progress Note for:: 01/15/20 Subjective:: Tolerated NGT removal well w/ advance in diet to full liquid so far, had BM Reason For Visit: LOWER GI BLEED Physical Exam Vital Signs: Temp Pulse Resp BP Pulse Ox 97.5 F 82 16 136/73 H 96 01/14/20 15:32 01/15/20 02:00 01/14/20 15:32 01/14/20 16:21 01/14/20 15:32 Intake & Output 01/14/20 01/15/20 01/16/20 06:59 06:59 06:59 Intake Total 3743 3635 Output Total 2750 1875 Balance 993 1760 Weight 59.5 kg 63.2 kg General appearance: PRESENT: no acute distress, well-developed, well-nourished Head exam: PRESENT: atraumatic, normocephalic Eye exam: PRESENT: conjunctiva pink, EOMI, PERRLA. ABSENT: scleral icterus Ear exam: PRESENT: normal external ear exam Mouth exam: PRESENT: moist, tongue midline Neck exam: ABSENT: carotid bruit, JVD, lymphadenopathy, thyromegaly Respiratory exam: PRESENT: clear to auscultation aisha. ABSENT: rales, rhonchi, wheezes Cardiovascular exam: PRESENT: RRR. ABSENT: diastolic murmur, rubs, systolic murmur Pulses: PRESENT: normal dorsalis pedis pul Vascular exam: PRESENT: normal capillary refill GI/Abdominal exam: PRESENT: normal bowel sounds, soft. ABSENT: distended, guarding, mass, organolmegaly, rebound, tenderness Rectal exam: PRESENT: deferred Extremities exam: PRESENT: full ROM. ABSENT: calf tenderness, clubbing, pedal edema Neurological exam: PRESENT: alert, awake, oriented to person, oriented to place, oriented to time, oriented to situation, CN II-XII grossly intact. ABSENT: motor sensory deficit Psychiatric exam: PRESENT: appropriate affect, normal mood. ABSENT: homicidal ideation, suicidal ideation Skin exam: PRESENT: dry, intact, warm. ABSENT: cyanosis, rash Results Laboratory Results: 01/14/20 05:23 01/15/20 05:24 01/15/20 05:24 Sodium 137.2 Potassium 3.3 L Chloride 106 Carbon Dioxide 26 Anion Gap 5 BUN 5 L Creatinine 0.54 Est GFR ( Amer) > 60 Glucose 112 H Calcium 7.7 L Magnesium 1.8 Total Bilirubin 0.4 AST 22 Alkaline Phosphatase 100 Total Protein 4.8 L Albumin 2.0 L 01/12/20 06:32 Sputum Gram Stain - Final 01/12/20 06:32 Sputum Sputum Culture - Final NORMAL RODO 01/09/20 08:50 Blood Blood Culture - Final NO GROWTH IN 5 DAYS 01/09/20 08:36 Blood Blood Culture - Final NO GROWTH IN 5 DAYS Impressions: Chest X-Ray 01/09/20 00:00 IMPRESSION: COPD. Trace right pleural effusion. Abdomen/Pelvis CT 01/11/20 08:00 IMPRESSION: 1. Large primary colon cancer in the right lower quadrant. 2. No evidence of metastatic disease. Chest CT 01/11/20 08:00 IMPRESSION: Chronic interstitial lung disease. Small effusions. Several small pulmonary nodules for which cannot exclude metastatic disease. KUB X-Ray 01/11/20 13:51 IMPRESSION: Nasogastric tube in the stomach. Assessment & Plan - Diagnosis (1) Cancer of right colon Is this a current diagnosis for this admission?: Yes Plan: Improving, await final path. Will follow - Time Time Spent with patient: 15-24 minutes
--- NOTE | 2020-01-15 08:40 | PDOC PROGRESS REPORT ---
Subjective Progress Note for:: 01/15/20 Reason For Visit: LOWER GI BLEED Patient tolerated clear liquids, ambulated in the hallway. Lazar catheter still in. 2 out of 5 Physical Exam Vital Signs: Temp Pulse Resp BP Pulse Ox 97.5 F 96 16 141/88 H 95 01/15/20 07:39 01/15/20 07:39 01/15/20 07:39 01/15/20 07:39 01/15/20 07:39 Intake & Output 01/14/20 01/15/20 01/16/20 06:59 06:59 06:59 Intake Total 3743 3635 Output Total 2750 1875 Balance 993 1760 Weight 59.5 kg 63.2 kg General appearance: PRESENT: no acute distress GI/Abdominal exam: PRESENT: other - Incision, dry, intact; lower abdomen slightly distended. No peritoneal signs. Results Laboratory Results: 01/14/20 05:23 01/15/20 05:24 01/15/20 05:24 Sodium 137.2 Potassium 3.3 L Chloride 106 Carbon Dioxide 26 Anion Gap 5 BUN 5 L Creatinine 0.54 Est GFR ( Amer) > 60 Glucose 112 H Calcium 7.7 L Magnesium 1.8 Total Bilirubin 0.4 AST 22 Alkaline Phosphatase 100 Total Protein 4.8 L Albumin 2.0 L 01/12/20 06:32 Sputum Gram Stain - Final 01/12/20 06:32 Sputum Sputum Culture - Final NORMAL RODO 01/09/20 08:50 Blood Blood Culture - Final NO GROWTH IN 5 DAYS 01/09/20 08:36 Blood Blood Culture - Final NO GROWTH IN 5 DAYS Impressions: Chest X-Ray 01/09/20 00:00 IMPRESSION: COPD. Trace right pleural effusion. Abdomen/Pelvis CT 01/11/20 08:00 IMPRESSION: 1. Large primary colon cancer in the right lower quadrant. 2. No evidence of metastatic disease. Chest CT 01/11/20 08:00 IMPRESSION: Chronic interstitial lung disease. Small effusions. Several small pulmonary nodules for which cannot exclude metastatic disease. KUB X-Ray 01/11/20 13:51 IMPRESSION: Nasogastric tube in the stomach. Assessment & Plan - Diagnosis (1) Cancer of right colon Is this a current diagnosis for this admission?: Yes Plan: Impression: Patient is postoperative day 4, status post exploratory laparotomy, colectomy, primary anastomosis, doing well, tolerating full liquids; abdomen slightly distended. Lazar catheter still in. Antibiotics off. Operative c omplications. Recommendations: 1. Increase ambulation 2. Hep-Lock IV 3. Discontinue Lazar catheter 4. Dissipate discharge home in the next 24 to 48 hours. (2) Former smoker Is this a current diagnosis for this admission?: Yes (3) COPD (chronic obstructive pulmonary disease) Is this a current diagnosis for this admission?: Yes (4) Anemia Qualifiers: Other causes of anemia: acute posthemorrhagic Is this a current diagnosis for this admission?: Yes (5) GI bleed Qualifiers: GI bleed type/associated pathology: unspecified gastrointestinal hemorrhage type Qualified Code(s): K92.2 - Gastrointestinal hemorrhage, unspecified Is this a current diagnosis for this admission?: Yes (6) Hypertension Is this a current diagnosis for this admission?: Yes - Time Time Spent: 30 to 50 Minutes
[2020-01-15] MEDS: MULTIVITAMIN TABLET PO SCH (09:29)
[2020-01-15] MEDS: OMEGA-3 ACID ETHYL ESTERS 1 GM CAPSULE PO SCH (09:29)
[2020-01-15] MEDS: FERROUS SULFATE 325 MG TABLET PO SCH (09:29)
[2020-01-15] MEDS: POTASSIUM CHLORIDE 20 MEQ PACKET PO SCH ×2 (09:29→21:25)
[2020-01-15] MEDS: AMLODIPINE BESYLATE 5 MG TABLET PO SCH (09:29)
[2020-01-15] MEDS: CALCIUM CARBONATE 600 MG TABLET PO SCH (09:29)
--- NOTE | 2020-01-15 15:03 | PDOC PROGRESS REPORT ---
Subjective Progress Note for:: 01/15/20 Subjective:: NABIL CORONADO is a 89 year old female with a past medical history of osteoarthritis and hypertension who was admitted 01/08/2020 with acute blood loss anemia secondary to GI bleed. Patient was seen on afternoon rounds. She was found sitting up to the bedside commode; now having bowel movements. Reports slight abdominal discomfort and poor appetite, but overall, feeling well. She denies fever, chest pain, palpitations, dyspnea, dizziness/headaches, nausea and vomiting. She has no questions or concerns at this time; somewhat nervous about possible discharge tomorrow. No concerns per nursing. Reason For Visit: LOWER GI BLEED Physical Exam Vital Signs: Temp Pulse Resp BP Pulse Ox 97.5 F 96 16 141/88 H 95 01/15/20 07:39 01/15/20 07:39 01/15/20 07:39 01/15/20 07:39 01/15/20 07:39 Intake & Output 01/14/20 01/15/20 01/16/20 06:59 06:59 06:59 Intake Total 3743 3635 1270 Output Total 2750 1875 200 Balance 993 1760 1070 Weight 59.5 kg 63.2 kg 63.2 kg General appearance: PRESENT: no acute distress, cooperative, well-developed, well-nourished Head exam: PRESENT: atraumatic, normocephalic Eye exam: PRESENT: conjunctiva pink, EOMI, PERRLA. ABSENT: scleral icterus Mouth exam: PRESENT: moist, tongue midline Respiratory exam: PRESENT: clear to auscultation aisha. ABSENT: rales, rhonchi, wheezes Cardiovascular exam: PRESENT: RRR. ABSENT: diastolic murmur, rubs, systolic murmur Vascular exam: PRESENT: normal capillary refill GI/Abdominal exam: PRESENT: normal bowel sounds, soft. ABSENT: distended, guarding, mass, organolmegaly, rebound, tenderness Rectal exam: PRESENT: deferred Extremities exam: PRESENT: full ROM. ABSENT: calf tenderness, clubbing, pedal edema Musculoskeletal exam: PRESENT: ambulatory Neurological exam: PRESENT: alert, awake, oriented to person, oriented to place, oriented to time, oriented to situation, CN II-XII grossly intact. ABSENT: motor sensory deficit Psychiatric exam: PRESENT: appropriate affect, normal mood. ABSENT: homicidal ideation, suicidal ideation Skin exam: PRESENT: dry, intact, warm. ABSENT: cyanosis, rash Results Laboratory Results: 01/14/20 05:23 01/15/20 05:24 01/15/20 05:24 Sodium 137.2 Potassium 3.3 L Chloride 106 Carbon Dioxide 26 Anion Gap 5 BUN 5 L Creatinine 0.54 Est GFR ( Amer) > 60 Glucose 112 H Calcium 7.7 L Magnesium 1.8 Total Bilirubin 0.4 AST 22 Alkaline Phosphatase 100 Total Protein 4.8 L Albumin 2.0 L 01/12/20 06:32 Sputum Gram Stain - Final 01/12/20 06:32 Sputum Sputum Culture - Final NORMAL RODO Impressions: Chest X-Ray 01/09/20 00:00 IMPRESSION: COPD. Trace right pleural effusion. Abdomen/Pelvis CT 01/11/20 08:00 IMPRESSION: 1. Large primary colon cancer in the right lower quadrant. 2. No evidence of metastatic disease. Chest CT 01/11/20 08:00 IMPRESSION: Chronic interstitial lung disease. Small effusions. Several small pulmonary nodules for which cannot exclude metastatic disease. KUB X-Ray 01/11/20 13:51 IMPRESSION: Nasogastric tube in the stomach. Assessment and Plan - Diagnosis (1) Mass of hepatic flexure of colon Is this a current diagnosis for this admission?: Yes Plan: POD 5 s/p exploratory laparotomy, right hemicolectomy with ileotransverse colostomy. Likely colonic adenocarcinoma. Pending biopsy results. Surgery and oncology on board. NG tube has been removed and diet advanced per surgery. Passing flatus/stool. Tolerating p.o. intake w/ only mild discomfort. Possible discharge home otmorrow. (2) GI bleed Qualifiers: GI bleed type/associated pathology: unspecified gastrointestinal hemorrhage type Qualified Code(s): K92.2 - Gastrointestinal hemorrhage, unspecified Is this a current diagnosis for this admission?: Yes Plan: Secondary to colonic mass. s/p 1 unit PRBC on admission. H&H stable. Denies any melena, hematochezia or hematemesis. Continue PPIs. Monitor H&H. Supportive transfusions. (3) Anemia Qualifiers: Other causes of anemia: acute posthemorrhagic Is this a current diagnosis for this admission?: Yes Plan: Acute iron deficiency anemia most likely due to GI bleed. Iron studies suggestive of severe iron deficiency anemia. s/p 1 unit PRBC on admission. H&H stable. Denies any melena, hematochezia or hematemesis. Continue oral ferrous sulfate. Monitor H&H. Monitor for bleeding. Supportive transfusions. (4) Leukocytosis Is this a current diagnosis for this admission?: Yes Plan: Improving. Likely reactive secondary to GI bleed/surgical interventions. No sign of systemic infection. CXR negative for acute fidings. UA negative Cultures negative since admission. No indications for antibiotics at this time. (5) Hypertension Is this a current diagnosis for this admission?: Yes Plan: Controlled. Continue home dose Norvasc IV Hydralazine as needed for BP control. (6) COPD (chronic obstructive pulmonary disease) Is this a current diagnosis for this admission?: Yes Plan: History of COPD and former smoker. Does not seem to be acutely exacerbated. SPO2 WNL on RA. Continue nebs as needed. Continue supplemental oxygen as needed. (7) Hypokalemia Is this a current diagnosis for this admission?: Yes Plan: Likely due to GI losses. No acute EKG changes. Additional oral potassium today. Monitor electrolytes and replace as needed. - Time Time Spent with patient: 25-34 minutes Medications reviewed and adjusted accordingly: Yes Anticipated discharge: Home Within: within 24 hours
[2020-01-15] MEDS: ONDANSETRON HCL INJ/PF 4 MG/2 ML SDV IV PRN (16:11)
[2020-01-16] MEDS: HEPARIN SOD (PORCINE) 5,000 UNIT/ML 1 ML VIAL SUBCUT SCH ×3 (05:40→21:01)
[2020-01-16 06:43] LABS: HEMATOCRIT 35.7 % (36.0-47.0); HEMOGLOBIN 11.8 g/dL (12.0-15.5); MEAN CORPUSCULAR HEMOGLOBIN 29.5 pg (27.0-33.4); MEAN CORPUSCULAR VOLUME 90 fl (80-97); PLATELET COUNT 445 10^3/uL (150-450); RED BLOOD COUNT 3.99 10^6/uL (3.72-5.28); RED CELL DISTRIBUTION WIDTH 14.6 % (11.5-14.0); WHITE BLOOD COUNT 11.1 10^3/uL (4.0-10.5)
[2020-01-16 07:03] LABS: BLOOD UREA NITROGEN 14 mg/dL (7-20); CALCIUM 8.4 mg/dL (8.4-10.2); CARBON DIOXIDE 28 mmol/L (22-30); GLUCOSE 96 mg/dL (75-110); POTASSIUM 4.4 mmol/L (3.6-5.0)
[2020-01-16 07:08] LABS: CHLORIDE 105 mmol/L (98-107)
[2020-01-16 07:14] LABS: ANION GAP 2 (5-19)
--- NOTE | 2020-01-16 09:40 | PDOC PROGRESS REPORT ---
Subjective Progress Note for:: 01/16/20 Subjective:: Had some nausea yesterday. Had one episode of emesis earlier in the day none since that time. Poor appetite today. Had a bowel movement yesterday. Reason For Visit: LOWER GI BLEED Physical Exam Vital Signs: Temp Pulse Resp BP Pulse Ox 97.7 F 99 17 146/68 H 90 L 01/16/20 07:22 01/16/20 07:22 01/16/20 07:22 01/16/20 07:22 01/16/20 07:22 Intake & Output 01/15/20 01/16/20 01/17/20 06:59 06:59 06:59 Intake Total 3635 1270 Output Total 1875 200 Balance 1760 1070 Weight 63.2 kg 64.3 kg General appearance: PRESENT: no acute distress, cooperative Respiratory exam: PRESENT: clear to auscultation aisha Cardiovascular exam: PRESENT: RRR GI/Abdominal exam: PRESENT: other - Active bowel sounds, soft, minimal tenderness, very mild distention. Results Laboratory Results: 01/16/20 06:11 01/16/20 06:11 01/16/20 01/16/20 06:11 06:11 WBC 11.1 H RBC 3.99 Hgb 11.8 L Hct 35.7 L MCV 90 MCH 29.5 MCHC 33.0 RDW 14.6 H Plt Count 445 Sodium 135.0 L Potassium 4.4 Chloride 105 Carbon Dioxide 28 Anion Gap 2 L BUN 14 Creatinine 0.98 Est GFR ( Amer) > 60 Glucose 96 Calcium 8.4 Impressions: Chest X-Ray 01/09/20 00:00 IMPRESSION: COPD. Trace right pleural effusion. Abdomen/Pelvis CT 01/11/20 08:00 IMPRESSION: 1. Large primary colon cancer in the right lower quadrant. 2. No evidence of metastatic disease. Chest CT 01/11/20 08:00 IMPRESSION: Chronic interstitial lung disease. Small effusions. Several small pulmonary nodules for which cannot exclude metastatic disease. KUB X-Ray 01/11/20 13:51 IMPRESSION: Nasogastric tube in the stomach. Assessment & Plan - Diagnosis (1) Cecum mass Is this a current diagnosis for this admission?: Yes Plan: Post right hemicolectomy. Patient has some mild distention and had nausea and vomiting yesterday. Had a bowel movement yesterday. Poor appetite overall. Her creatinine has increased. Will place her back on some maintenance IV fluids. Recheck her chemistries tomorrow. Will back off her diet to clears for now. Encourage ambulation.
[2020-01-16] MEDS: ONDANSETRON HCL INJ/PF 4 MG/2 ML SDV IV PRN (09:52)
[2020-01-16] MEDS: CALCIUM CARBONATE 600 MG TABLET PO SCH (09:54)
[2020-01-16] MEDS: OMEGA-3 ACID ETHYL ESTERS 1 GM CAPSULE PO SCH (09:54)
[2020-01-16] MEDS: AMLODIPINE BESYLATE 5 MG TABLET PO SCH (09:54)
[2020-01-16] MEDS: MULTIVITAMIN TABLET PO SCH (09:54)
[2020-01-16] MEDS: FERROUS SULFATE 325 MG TABLET PO SCH (09:55)
--- NOTE | 2020-01-16 09:59 | RADIOLOGY REPORT (SQ) ---
EXAM DESCRIPTION: CHEST SINGLE VIEW IMAGES COMPLETED DATE/TIME: 01/16/2020 9:39 am REASON FOR STUDY: hypoxia, vomiting COMPARISON: CT chest 01/11/2020 AP chest 01/09/2020 EXAM PARAMETERS: NUMBER OF VIEWS: One view. TECHNIQUE: Single frontal radiographic view of the chest acquired. RADIATION DOSE: NA LIMITATIONS: None. FINDINGS: LUNGS AND PLEURA: Small pleural effusions are present, more prominent than on both prior s tudies. There is bibasilar airspace disease atelectasis versus pneumonia. Remainder of the lungs are hyperinflated from obstructive disease. No pneumothorax. MEDIASTINUM AND HILAR STRUCTURES: No masses. Contour normal. HEART AND VASCULAR STRUCTURES: No cardiomegaly BONES: Osteoporosis with advanced arthritis right glenohumeral joint HARDWARE: None in the chest. OTHER: No other significant finding. IMPRESSION: Small bilateral pleural effusions are present, more prominent than on prior studies Persistent bibasilar consolidation atelectasis versus pneumonia TECHNICAL DOCUMENTATION: JOB ID: [id number] 2010 [email or web address]- All Rights Reserved Reading location - IP/workstation name: [email or web address]
[2020-01-16] MEDS: NORMAL SALINE 1000 ML 1,000 ML IV PRN (11:15)
--- NOTE | 2020-01-16 12:42 | PDOC PROGRESS REPORT ---
Subjective Progress Note for:: 01/16/20 Subjective:: NABIL CORONADO is a 89 year old female with a past medical history of osteoarthritis and hypertension who was admitted 01/08/2020 with acute blood loss anemia secondary to GI bleed. Patient was seen on morning rounds. She was found resting in bed, comfortably, on room air. Reports slight abdominal discomfort and poor appetite. Continued nausea w/ 1 episode of emesis yesterday. She denies fever, chest pain, palpitations, dyspnea, orthopnea, cough. She has no questions or concerns at this time; remains nervous about discharge. Agreeable to home health services. No concerns per nursing. Reason For Visit: LOWER GI BLEED Physical Exam Vital Signs: Temp Pulse Resp BP Pulse Ox 97.4 F 99 17 127/72 H 91 L 01/16/20 11:11 01/16/20 11:11 01/16/20 11:11 01/16/20 11:11 01/16/20 11:11 Intake & Output 01/15/20 01/16/20 01/17/20 06:59 06:59 06:59 Intake Total 3635 1270 Output Total 1875 200 Balance 1760 1070 Weight 63.2 kg 64.3 kg General appearance: PRESENT: no acute distress, well-developed, well-nourished Head exam: PRESENT: atraumatic, normocephalic Eye exam: PRESENT: conjunctiva pink, EOMI, PERRLA. ABSENT: scleral icterus Mouth exam: PRESENT: dry mucosa, tongue midline Respiratory exam: PRESENT: clear to auscultation aisha, symmetrical, unlabored. ABSENT: rales, rhonchi, wheezes Cardiovascular exam: PRESENT: RRR. ABSENT: diastolic murmur, rubs, systolic murmur Vascular exam: PRESENT: normal capillary refill GI/Abdominal exam: PRESENT: distended - bloated, normal bowel sounds, soft, tenderness. ABSENT: guarding, mass, organolmegaly, rebound Rectal exam: PRESENT: deferred Extremities exam: PRESENT: full ROM. ABSENT: calf tenderness, clubbing, pedal edema Musculoskeletal exam: PRESENT: ambulatory Neurological exam: PRESENT: alert, awake, oriented to person, oriented to place, oriented to time, oriented to situation, CN II-XII grossly intact. ABSENT: motor sensory deficit Psychiatric exam: PRESENT: appropriate affect, normal mood. ABSENT: homicidal ideation, suicidal ideation Skin exam: PRESENT: dry, intact, warm. ABSENT: cyanosis, rash Results Laboratory Results: 01/16/20 06:11 01/16/20 06:11 01/16/20 01/16/20 06:11 06:11 WBC 11.1 H RBC 3.99 Hgb 11.8 L Hct 35.7 L MCV 90 MCH 29.5 MCHC 33.0 RDW 14.6 H Plt Count 445 Sodium 135.0 L Potassium 4.4 Chloride 105 Carbon Dioxide 28 Anion Gap 2 L BUN 14 Creatinine 0.98 Est GFR ( Amer) > 60 Glucose 96 Calcium 8.4 Impressions: Abdomen/Pelvis CT 01/11/20 08:00 IMPRESSION: 1. Large primary colon cancer in the right lower quadrant. 2. No evidence of metastatic disease. Chest CT 01/11/20 08:00 IMPRESSION: Chronic interstitial lung disease. Small effusions. Several small pulmonary nodules for which cannot exclude metastatic disease. KUB X-Ray 01/11/20 13:51 IMPRESSION: Nasogastric tube in the stomach. Chest X-Ray 01/16/20 00:00 IMPRESSION: Small bilateral pleural effusions are present, more prominent than on prior studies Persistent bibasilar consolidation atelectasis versus pneumonia Assessment and Plan - Diagnosis (1) Mass of hepatic flexure of colon Is this a current diagnosis for this admission?: Yes Plan: POD 5 s/p exploratory laparotomy, right hemicolectomy with ileotransverse colostomy. Likely colonic adenocarcinoma. Pending biopsy results. Surgery and oncology on board. NG tube has been removed and diet advanced per surgery. Passing flatus/stool. Clear liquid diet per Surgery. Continue IVF. Antiemetics as needed. Encouraged ambulation. (2) GI bleed Qualifiers: GI bleed type/associated pathology: unspecified gastrointestinal hemorrhage type Qualified Code(s): K92.2 - Gastrointestinal hemorrhage, unspecified Is this a current diagnosis for this admission?: Yes Plan: Secondary to colonic mass. s/p 1 unit PRBC on admission. H&H stable. Denies any melena, hematochezia or hematemesis. Continue PPIs. Monitor H&H. Supportive transfusions. (3) Anemia Qualifiers: Other causes of anemia: acute posthemorrhagic Is this a current diagnosis for this admission?: Yes Plan: Acute iron deficiency anemia most likely due to GI bleed. Iron studies suggestive of severe iron deficiency anemia. s/p 1 unit PRBC on admission. H&H stable. Denies any melena, hematochezia or hematemesis. Continue oral ferrous sulfate. Monitor H&H. Monitor for bleeding. Supportive transfusions. (4) Leukocytosis Is this a current diagnosis for this admission?: Yes Plan: Continues to improve. Likely reactive secondary to GI bleed/surgical interventions. No sign of systemic infection. CXR negative for acute fidings. UA negative Cultures negative since admission. No indications for antibiotics at this time. (5) Hypertension Is this a current diagnosis for this admission?: Yes Plan: Controlled. Continue home dose Norvasc IV Hydralazine as needed for BP control. (6) COPD (chronic obstructive pulmonary disease) Is this a current diagnosis for this admission?: Yes Plan: History of COPD and former smoker. Does not seem to be acutely exacerbated. SPO2 WNL on RA. Continue nebs as needed. Continue supplemental oxygen as needed. Incentive spirometer, flutter valve, and ambulation. (7) Hypokalemia Is this a current diagnosis for this admission?: Yes Plan: Replete. Likely due to GI losses. No acute EKG changes. Monitor electrolytes and replace as needed. - Time Time Spent with patient: 15-24 minutes Medications reviewed and adjusted accordingly: Yes Anticipated discharge: Home with Homehealth
[2020-01-17] MEDS: NORMAL SALINE 1000 ML 1,000 ML IV PRN (04:45)
[2020-01-17] MEDS: HEPARIN SOD (PORCINE) 5,000 UNIT/ML 1 ML VIAL SUBCUT SCH ×3 (05:47→21:12)
[2020-01-17 06:20] LABS: BLOOD UREA NITROGEN 14 mg/dL (7-20); GLUCOSE 80 mg/dL (75-110); POTASSIUM 3.8 mmol/L (3.6-5.0)
[2020-01-17 06:26] LABS: CARBON DIOXIDE 28 mmol/L (22-30); CHLORIDE 104 mmol/L (98-107)
[2020-01-17 06:37] LABS: ANION GAP 3 (5-19)
--- NOTE | 2020-01-17 08:08 | PDOC PROGRESS REPORT ---
Subjective Progress Note for:: 01/17/20 Subjective:: PT doing better, still weak, still w/ pain on movement, having BMs, wants to eat something more than full liquid Reason For Visit: LOWER GI BLEED Physical Exam Vital Signs: Temp Pulse Resp BP Pulse Ox 97.6 F 83 16 129/78 H 90 L 01/17/20 03:41 01/17/20 03:41 01/17/20 03:41 01/17/20 03:41 01/17/20 03:41 Intake & Output 01/16/20 01/17/20 01/18/20 06:59 06:59 06:59 Intake Total 1270 1700 Output Total 200 300 Balance 1070 1400 Weight 64.3 kg 63.6 kg General appearance: PRESENT: no acute distress, well-developed, well-nourished Head exam: PRESENT: atraumatic, normocephalic Eye exam: PRESENT: conjunctiva pink, EOMI, PERRLA. ABSENT: scleral icterus Ear exam: PRESENT: normal external ear exam Mouth exam: PRESENT: moist, tongue midline Neck exam: ABSENT: carotid bruit, JVD, lymphadenopathy, thyromegaly Respiratory exam: PRESENT: clear to auscultation aisha. ABSENT: rales, rhonchi, wheezes Cardiovascular exam: PRESENT: RRR. ABSENT: diastolic murmur, rubs, systolic murmur Pulses: PRESENT: normal dorsalis pedis pul Vascular exam: PRESENT: normal capillary refill GI/Abdominal exam: PRESENT: normal bowel sounds, soft. ABSENT: distended, guarding, mass, organolmegaly, rebound, tenderness Rectal exam: PRESENT: deferred Extremities exam: PRESENT: full ROM. ABSENT: calf tenderness, clubbing, pedal edema Neurological exam: PRESENT: alert, awake, oriented to person, oriented to place, oriented to time, oriented to situation, CN II-XII grossly intact. ABSENT: motor sensory deficit Psychiatric exam: PRESENT: appropriate affect, normal mood. ABSENT: homicidal ideation, suicidal ideation Skin exam: PRESENT: dry, intact, warm. ABSENT: cyanosis, rash Results Laboratory Results: 01/16/20 06:11 01/17/20 05:23 01/17/20 05:23 Sodium 135.1 L Potassium 3.8 Chloride 104 Carbon Dioxide 28 Anion Gap 3 L BUN 14 Creatinine 0.88 Est GFR ( Amer) > 60 Glucose 80 Calcium 8.0 L Impressions: Abdomen/Pelvis CT 01/11/20 08:00 IMPRESSION: 1. Large primary colon cancer in the right lower quadrant. 2. No evidence of metastatic disease. Chest CT 01/11/20 08:00 IMPRESSION: Chronic interstitial lung disease. Small effusions. Several small pulmonary nodules for which cannot exclude metastatic disease. KUB X-Ray 01/11/20 13:51 IMPRESSION: Nasogastric tube in the stomach. Chest X-Ray 01/16/20 00:00 IMPRESSION: Small bilateral pleural effusions are present, more prominent than on prior studies Persistent bibasilar consolidation atelectasis versus pneumonia Assessment & Plan - Diagnosis (1) Cancer of right colon Is this a current diagnosis for this admission?: Yes Plan: Stage III colon ca, d/w pt and family extensively today, don't plan adjuvant rx given age, spent 45 min in discussion, need f/u 3-4 wk post d/c in our office. - Time Time Spent with patient: 35 or more minutes
[2020-01-17] MEDS: OMEGA-3 ACID ETHYL ESTERS 1 GM CAPSULE PO SCH (09:33)
[2020-01-17] MEDS: CALCIUM CARBONATE 600 MG TABLET PO SCH (09:33)
[2020-01-17] MEDS: FERROUS SULFATE 325 MG TABLET PO SCH (09:33)
[2020-01-17] MEDS: AMLODIPINE BESYLATE 5 MG TABLET PO SCH (09:33)
[2020-01-17] MEDS: MULTIVITAMIN TABLET PO SCH (09:33)
--- NOTE | 2020-01-17 12:07 | PDOC PROGRESS REPORT ---
Subjective Progress Note for:: 01/17/20 Reason For Visit: LOWER GI BLEED Physical Exam Vital Signs: Temp Pulse Resp BP Pulse Ox 97.3 F 95 18 128/72 H 90 L 01/17/20 07:13 01/17/20 07:13 01/17/20 07:13 01/17/20 07:13 01/17/20 07:13 Intake & Output 01/16/20 01/17/20 01/18/20 06:59 06:59 06:59 Intake Total 1270 1700 Output Total 200 300 Balance 1070 1400 Weight 64.3 kg 63.6 kg Results Laboratory Results: 01/16/20 06:11 01/17/20 05:23 01/17/20 05:23 Sodium 135.1 L Potassium 3.8 Chloride 104 Carbon Dioxide 28 Anion Gap 3 L BUN 14 Creatinine 0.88 Est GFR ( Amer) > 60 Glucose 80 Calcium 8.0 L Impressions: Abdomen/Pelvis CT 01/11/20 08:00 IMPRESSION: 1. Large primary colon cancer in the right lower quadrant. 2. No evidence of metastatic disease. Chest CT 01/11/20 08:00 IMPRESSION: Chronic interstitial lung disease. Small effusions. Several small pulmonary nodules for which cannot exclude metastatic disease. KUB X-Ray 01/11/20 13:51 IMPRESSION: Nasogastric tube in the stomach. Chest X-Ray 01/16/20 00:00 IMPRESSION: Small bilateral pleural effusions are present, more prominent than on prior studies Persistent bibasilar consolidation atelectasis versus pneumonia Assessment & Plan - Diagnosis (1) Cancer of right colon Is this a current diagnosis for this admission?: Yes - Plan Summary Plan Summary: This is an 89-year-old female status post right hemicolectomy for cancer. Yesterday the patient struggled with nausea, however today she denies any issues. She continues to have flatus and bowel movements. She is tolerating liquids. She is requesting more solid food to eat. Start a soft mechanical diet. Ambulate. Aggressive pulmonary toilet. Surgery will follow.
--- NOTE | 2020-01-17 17:00 | PDOC PROGRESS REPORT ---
Subjective Progress Note for:: 01/17/20 Subjective:: NABIL CORONADO is a 89 year old female with a past medical history of osteoarthritis and hypertension who was admitted 01/08/2020 with acute blood loss anemia secondary to GI bleed. Patient was seen on afternoon rounds. She was found resting in bed, comfortably, on room air. Reports slight abdominal discomfort and poor appetite. Did tolerate breakfast but remains too full for lunch. Continued nausea but without emesis today. She denies fever, chest pain, palpitations, dyspnea, orthopnea, cough. She has no questions or concerns at this time; remains nervous about discharge. Agreeable to home health services. No concerns per nursing. Reason For Visit: LOWER GI BLEED Physical Exam Vital Signs: Temp Pulse Resp BP Pulse Ox 97.4 F 100 17 114/66 90 L 01/17/20 11:38 01/17/20 14:00 01/17/20 11:38 01/17/20 11:38 01/17/20 11:38 Intake & Output 01/16/20 01/17/20 01/18/20 06:59 06:59 06:59 Intake Total 1270 1700 50 Output Total 200 300 Balance 1070 1400 50 Weight 64.3 kg 63.6 kg General appearance: PRESENT: no acute distress, cooperative, thin, well- developed Head exam: PRESENT: atraumatic, normocephalic Eye exam: PRESENT: conjunctiva pink, EOMI, PERRLA. ABSENT: scleral icterus Ear exam: PRESENT: normal external ear exam Mouth exam: PRESENT: moist, tongue midline Respiratory exam: PRESENT: clear to auscultation aisha, symmetrical, unlabored. ABSENT: rales, rhonchi, wheezes Cardiovascular exam: PRESENT: RRR. ABSENT: diastolic murmur, rubs, systolic murmur Pulses: PRESENT: normal dorsalis pedis pul Vascular exam: PRESENT: normal capillary refill GI/Abdominal exam: PRESENT: normal bowel sounds, soft, tenderness. ABSENT: distended, guarding, mass, organolmegaly, rebound Rectal exam: PRESENT: deferred Extremities exam: PRESENT: full ROM. ABSENT: calf tenderness, clubbing, pedal edema Musculoskeletal exam: PRESENT: ambulatory Neurological exam: PRESENT: alert, awake, oriented to person, oriented to place, oriented to time, oriented to situation, CN II-XII grossly intact. ABSENT: motor sensory deficit Psychiatric exam: PRESENT: anxious, appropriate affect. ABSENT: homicidal ideation, suicidal ideation Skin exam: PRESENT: dry, intact, warm. ABSENT: cyanosis, rash Results Laboratory Results: 01/16/20 06:11 01/17/20 05:23 01/17/20 05:23 Sodium 135.1 L Potassium 3.8 Chloride 104 Carbon Dioxide 28 Anion Gap 3 L BUN 14 Creatinine 0.88 Est GFR ( Amer) > 60 Glucose 80 Calcium 8.0 L Impressions: Abdomen/Pelvis CT 01/11/20 08:00 IMPRESSION: 1. Large primary colon cancer in the right lower quadrant. 2. No evidence of metastatic disease. Chest CT 01/11/20 08:00 IMPRESSION: Chronic interstitial lung disease. Small effusions. Several small pulmonary nodules for which cannot exclude metastatic disease. KUB X-Ray 01/11/20 13:51 IMPRESSION: Nasogastric tube in the stomach. Chest X-Ray 01/16/20 00:00 IMPRESSION: Small bilateral pleural effusions are present, more prominent than on prior studies Persistent bibasilar consolidation atelectasis versus pneumonia Assessment and Plan - Diagnosis (1) Mass of hepatic flexure of colon Is this a current diagnosis for this admission?: Yes Plan: POD 5 s/p exploratory laparotomy, right hemicolectomy with ileotransverse c olostomy. Likely colonic adenocarcinoma. Surgery and oncology on board. NG tube has been removed and diet advanced per surgery. Passing flatus/stool. Diet advanced per Surgery. Continue IVF. Antiemetics as needed. Encouraged ambulation. (2) GI bleed Qualifiers: GI bleed type/associated pathology: unspecified gastrointestinal hemorrhage type Qualified Code(s): K92.2 - Gastrointestinal hemorrhage, unspecified Is this a current diagnosis for this admission?: Yes Plan: Secondary to colonic mass. s/p 1 unit PRBC on admission. H&H stable. Denies any melena, hematochezia or hematemesis. Continue PPIs. Monitor H&H. Supportive transfusions. (3) Anemia Qualifiers: Other causes of anemia: acute posthemorrhagic Is this a current diagnosis for this admission?: Yes Plan: Acute iron deficiency anemia most likely due to GI bleed. Iron studies suggestive of severe iron deficiency anemia. s/p 1 unit PRBC on admission. H&H stable. Denies any melena, hematochezia or hematemesis. Continue oral ferrous sulfate. Monitor H&H. Monitor for bleeding. Supportive transfusions. (4) Leukocytosis Is this a current diagnosis for this admission?: Yes Plan: Continues to improve. Likely reactive secondary to GI bleed/surgical interventions. No sign of systemic infection. CXR negative for acute fidings. UA negative Cultures negative since admission. No indications for antibiotics at this time. (5) Hypertension Is this a current diagnosis for this admission?: Yes Plan: Controlled. Continue home dose Norvasc IV Hydralazine as needed for BP control. (6) COPD (chronic obstructive pulmonary disease) Is this a current diagnosis for this admission?: Yes Plan: History of COPD and former smoker. Does not seem to be acutely exacerbated. SPO2 WNL on RA. Continue nebs as needed. Continue supplemental oxygen as needed. Incentive spirometer, flutter valve, and ambulation. (7) Hypokalemia Is this a current diagnosis for this admission?: Yes Plan: Replete. Likely due to GI losses. No acute EKG changes. Monitor electrolytes and replace as needed. - Time Time Spent with patient: 15-24 minutes Medications reviewed and adjusted accordingly: Yes Anticipated discharge: Home with Homehealth Within: within 24 hours
[2020-01-17] MEDS: METOPROLOL TARTRATE 25 MG TABLET PO SCH (21:12)
[2020-01-18] MEDS: HEPARIN SOD (PORCINE) 5,000 UNIT/ML 1 ML VIAL SUBCUT SCH ×3 (05:21→21:31)
--- NOTE | 2020-01-18 09:17 | PDOC PROGRESS REPORT ---
Subjective Progress Note for:: 01/18/20 Subjective:: Feels better. Tolerating a diet now. Having bowel movements. Reason For Visit: LOWER GI BLEED Physical Exam Vital Signs: Temp Pulse Resp BP Pulse Ox 97.7 F 86 17 116/56 L 90 L 01/18/20 07:19 01/18/20 07:19 01/18/20 07:19 01/18/20 07:19 01/18/20 07:19 Intake & Output 01/17/20 01/18/20 01/19/20 06:59 06:59 06:59 Intake Total 1700 1100 Output Total 300 Balance 1400 1100 Weight 63.6 kg 63 kg General appearance: PRESENT: no acute distress, cooperative Respiratory exam: PRESENT: clear to auscultation aisha Cardiovascular exam: PRESENT: RRR GI/Abdominal exam: PRESENT: other - Soft, nondistended, minimal tenderness. Wound clean dry and intact with rogelio. Results Laboratory Results: 01/16/20 06:11 01/17/20 05:23 Impressions: Abdomen/Pelvis CT 01/11/20 08:00 IMPRESSION: 1. Large primary colon cancer in the right lower quadrant. 2. No evidence of metastatic disease. Chest CT 01/11/20 08:00 IMPRESSION: Chronic interstitial lung disease. Small effusions. Several small pulmonary nodules for which cannot exclude metastatic disease. KUB X-Ray 01/11/20 13:51 IMPRESSION: Nasogastric tube in the stomach. Chest X-Ray 01/16/20 00:00 IMPRESSION: Small bilateral pleural effusions are present, more prominent than on prior studies Persistent bibasilar consolidation atelectasis versus pneumonia Assessment & Plan - Diagnosis (1) Cecum mass Is this a current diagnosis for this admission?: Yes Plan: Post right hemicolectomy. Looks much better. Starting to take in better p.o. intake. Bowel function much improved. Possible discharge tomorrow or in a coup le of days if she continues to do well.
[2020-01-18] MEDS: METOPROLOL TARTRATE 25 MG TABLET PO SCH ×2 (09:23→21:31)
[2020-01-18] MEDS: MULTIVITAMIN TABLET PO SCH (09:27)
[2020-01-18] MEDS: FERROUS SULFATE 325 MG TABLET PO SCH (09:27)
[2020-01-18] MEDS: CALCIUM CARBONATE 600 MG TABLET PO SCH (09:27)
[2020-01-18] MEDS: OMEGA-3 ACID ETHYL ESTERS 1 GM CAPSULE PO SCH (09:27)
--- NOTE | 2020-01-18 14:23 | PDOC PROGRESS REPORT ---
Subjective Progress Note for:: 01/18/20 Subjective:: NABIL CORONADO is a 89 year old female with a past medical history of osteoarthritis and hypertension who was admitted 01/08/2020 with acute blood loss anemia secondary to GI bleed. Patient was seen on morning rounds. She was found resting in bed, comfortably, on room air. Reports slight abdominal discomfort and poor appetite. Reports that she is eating, though with continued nausea. Having frequent loose stools. She denies fever, chest pain, palpitations, dyspnea, orthopnea, cough. She has no questions or concerns at this time., Remains very nervous about di scharge; states she will need "a few more days here." I did introduce possibility of SNF for short term rehab; she immediately declines. Agreeable to home health services. No concerns per nursing. Reason For Visit: LOWER GI BLEED Physical Exam Vital Signs: Temp Pulse Resp BP Pulse Ox 97.5 F 79 17 109/52 L 90 L 01/18/20 11:30 01/18/20 11:30 01/18/20 11:30 01/18/20 11:30 01/18/20 11:30 Intake & Output 01/17/20 01/18/20 01/19/20 06:59 06:59 06:59 Intake Total 1700 1100 50 Output Total 300 Balance 1400 1100 50 Weight 63.6 kg 63 kg General appearance: PRESENT: no acute distress, thin, well-developed, well- nourished Head exam: PRESENT: atraumatic, normocephalic Eye exam: PRESENT: conjunctiva pink, EOMI, PERRLA. ABSENT: scleral icterus Mouth exam: PRESENT: moist, tongue midline Respiratory exam: PRESENT: clear to auscultation aisha, symmetrical, unlabored. ABSENT: rales, rhonchi, wheezes Cardiovascular exam: PRESENT: RRR. ABSENT: diastolic murmur, rubs, systolic murmur Vascular exam: PRESENT: normal capillary refill GI/Abdominal exam: PRESENT: normal bowel sounds, soft, tenderness. ABSENT: distended, guarding, mass, organolmegaly, rebound Rectal exam: PRESENT: deferred Extremities exam: PRESENT: full ROM. ABSENT: calf tenderness, clubbing, pedal edema Musculoskeletal exam: PRESENT: ambulatory Neurological exam: PRESENT: alert, awake, oriented to person, oriented to place, oriented to time, oriented to situation, CN II-XII grossly intact. ABSENT: motor sensory deficit Psychiatric exam: PRESENT: anxious, appropriate affect, normal mood. ABSENT: homicidal ideation, suicidal ideation Skin exam: PRESENT: dry, intact, warm. ABSENT: cyanosis, rash Results Laboratory Results: 01/16/20 06:11 01/17/20 05:23 Impressions: Abdomen/Pelvis CT 01/11/20 08:00 IMPRESSION: 1. Large primary colon cancer in the right lower quadrant. 2. No evidence of metastatic disease. Chest CT 01/11/20 08:00 IMPRESSION: Chronic interstitial lung disease. Small effusions. Several small pulmonary nodules for which cannot exclude metastatic disease. KUB X-Ray 01/11/20 13:51 IMPRESSION: Nasogastric tube in the stomach. Chest X-Ray 01/16/20 00:00 IMPRESSION: Small bilateral pleural effusions are present, more prominent than on prior studies Persistent bibasilar consolidation atelectasis versus pneumonia Assessment and Plan - Diagnosis (1) Mass of hepatic flexure of colon Is this a current diagnosis for this admission?: Yes Plan: POD 5 s/p exploratory laparotomy, right hemicolectomy with ileotransverse colostomy. Likely colonic adenocarcinoma. Surgery and oncology on board. NG tube has been removed and diet advanced per surgery. Passing flatus/stool. Diet advanced per Surgery. Continue IVF. Antiemetics as needed. Encouraged ambulation. (2) GI bleed Qualifiers: GI bleed type/associated pathology: unspecified gastrointestinal hemorrhage type Qualified Code(s): K92.2 - Gastrointestinal hemorrhage, unspecified Is this a current diagnosis for this admission?: Yes Plan: Secondary to colonic mass. s/p 1 unit PRBC on admission. H&H stable. Denies any melena, hematochezia or hematemesis. Continue PPIs. Monitor H&H. Supportive transfusions. (3) Anemia Qualifiers: Other causes of anemia: acute posthemorrhagic Is this a current diagnosis for this admission?: Yes Plan: Acute iron deficiency anemia most likely due to GI bleed. Iron studies suggestive of severe iron deficiency anemia. s/p 1 unit PRBC on admission. H&H stable. Denies any melena, hematochezia or hematemesis. Continue oral ferrous sulfate. Monitor H&H. Monitor for bleeding. Supportive transfusions. (4) Leukocytosis Is this a current diagnosis for this admission?: Yes Plan: Continues to improve. Likely reactive secondary to GI bleed/surgical interventions. No sign of systemic infection. CXR negative for acute fidings. UA negative Cultures negative since admission. No indications for antibiotics at this time. (5) Hypertension Is this a current diagnosis for this admission?: Yes Plan: Controlled. Continue home dose Norvasc IV Hydralazine as needed for BP control. (6) COPD (chronic obstructive pulmonary disease) Is this a current diagnosis for this admission?: Yes Plan: History of COPD and former smoker. Does not seem to be acutely exacerbated. SPO2 WNL on RA. Continue nebs as needed. Continue supplemental oxygen as needed. Incentive spirometer, flutter valve, and ambulation. (7) Hypokalemia Is this a current diagnosis for this admission?: Yes Plan: Replete. Likely due to GI losses. No acute EKG changes. Monitor electrolytes and replace as needed. - Time Time Spent with patient: 25-34 minutes Medications reviewed and adjusted accordingly: Yes Anticipated discharge: Home with Homehealth Within: within 24 hours - Pending surgical clearance
[2020-01-19] MEDS: HEPARIN SOD (PORCINE) 5,000 UNIT/ML 1 ML VIAL SUBCUT SCH ×2 (06:02→15:02)
--- NOTE | 2020-01-19 07:43 | PDOC PROGRESS REPORT ---
Subjective Progress Note for:: 01/19/20 Subjective:: Feeling better, still worried about going home, wants more time in house but told pt she needs to discuss that w/ hospitalist and surgical teams. I will see her 3-4 wk post d/c Reason For Visit: LOWER GI BLEED Physical Exam Vital Signs: Temp Pulse Resp BP Pulse Ox 97.4 F 75 18 112/67 96 01/19/20 00:00 01/19/20 00:00 01/19/20 00:00 01/19/20 00:00 01/19/20 00:00 Intake & Output 01/18/20 01/19/20 01/20/20 06:59 06:59 06:59 Intake Total 1100 450 Output Total 475 Balance 1100 -25 Weight 63 kg 41.1 kg General appearance: PRESENT: no acute distress, well-developed, well-nourished Head exam: PRESENT: atraumatic, normocephalic Eye exam: PRESENT: conjunctiva pink, EOMI, PERRLA. ABSENT: scleral icterus Ear exam: PRESENT: normal external ear exam Mouth exam: PRESENT: moist, tongue midline Neck exam: ABSENT: carotid bruit, JVD, lymphadenopathy, thyromegaly Respiratory exam: PRESENT: clear to auscultation aisha. ABSENT: rales, rhonchi, wheezes Cardiovascular exam: PRESENT: RRR. ABSENT: diastolic murmur, rubs, systolic murmur Pulses: PRESENT: normal dorsalis pedis pul Vascular exam: PRESENT: normal capillary refill GI/Abdominal exam: PRESENT: normal bowel sounds, soft. ABSENT: distended, guarding, mass, organolmegaly, rebound, tenderness Rectal exam: PRESENT: deferred Extremities exam: PRESENT: full ROM. ABSENT: calf tenderness, clubbing, pedal edema Neurological exam: PRESENT: alert, awake, oriented to person, oriented to place, oriented to time, oriented to situation, CN II-XII grossly intact. ABSENT: motor sensory deficit Psychiatric exam: PRESENT: appropriate affect, normal mood. ABSENT: homicidal ideation, suicidal ideation Skin exam: PRESENT: dry, intact, warm. ABSENT: cyanosis, rash Results Laboratory Results: 01/16/20 06:11 01/17/20 05:23 Impressions: Abdomen/Pelvis CT 01/11/20 08:00 IMPRESSION: 1. Large primary colon cancer in the right lower quadrant. 2. No evidence of metastatic disease. Chest CT 01/11/20 08:00 IMPRESSION: Chronic interstitial lung disease. Small effusions. Several small pulmonary nodules for which cannot exclude metastatic disease. KUB X-Ray 01/11/20 13:51 IMPRESSION: Nasogastric tube in the stomach. Chest X-Ray 01/16/20 00:00 IMPRESSION: Small bilateral pleural effusions are present, more prominent than on prior studies Persistent bibasilar consolidation atelectasis versus pneumonia Assessment & Plan - Diagnosis (1) Cancer of right colon Is this a current diagnosis for this admission?: Yes Plan: Will follow peripherally. Will need f/u w/in 3-4 wk of d/c - Time Time Spent with patient: 15-24 minutes
--- NOTE | 2020-01-19 10:27 | PDOC PROGRESS REPORT ---
Subjective Progress Note for:: 01/19/20 Subjective:: Generalized weakness but tolerating a diet and otherwise feels well. Reason For Visit: LOWER GI BLEED Physical Exam Vital Signs: Temp Pulse Resp BP Pulse Ox 97.5 F 86 17 103/62 89 L 01/19/20 07:22 01/19/20 07:22 01/19/20 07:22 01/19/20 07:22 01/19/20 07:22 Intake & Output 01/18/20 01/19/20 01/20/20 06:59 06:59 06:59 Intake Total 1100 450 Output Total 475 Balance 1100 -25 Weight 63 kg 41.1 kg General appearance: PRESENT: no acute distress, cooperative Respiratory exam: PRESENT: clear to auscultation aisha Cardiovascular exam: PRESENT: RRR GI/Abdominal exam: PRESENT: other - Soft, nondistended, nontender to palpation. Wound clean dry and intact with rogelio. Results Laboratory Results: 01/16/20 06:11 01/17/20 05:23 Impressions: Abdomen/Pelvis CT 01/11/20 08:00 IMPRESSION: 1. Large primary colon cancer in the right lower quadrant. 2. No evidence of metastatic disease. Chest CT 01/11/20 08:00 IMPRESSION: Chronic interstitial lung disease. Small effusions. Several small pulmonary nodules for which cannot exclude metastatic disease. KUB X-Ray 01/11/20 13:51 IMPRESSION: Nasogastric tube in the stomach. Chest X-Ray 01/16/20 00:00 IMPRESSION: Small bilateral pleural effusions are present, more prominent than on prior studies Persistent bibasilar consolidation atelectasis versus pneumonia Assessment & Plan - Diagnosis (1) Cecum mass Is this a current diagnosis for this admission?: Yes Plan: Status post right hemicolectomy. Patient doing well from her operation. May discharge patient home when okay with hospitalist. Follow-up at [facility] next week. Patient will follow-up with oncology as well for her colon cancer. Surgery service signing off. Please call us for any problems.
--- NOTE | 2020-01-19 10:55 | PDOC DISCHARGE SUMMARY ---
Impression - Admit/DC Date/PCP Admission Date/Primary Care Provider: 01/08/20 23:12 Discharge Date: 01/19/20 - Discharge Diagnosis (1) Mass of hepatic flexure of colon Is this a current diagnosis for this admission?: Yes (2) GI bleed Is this a current diagnosis for this admission?: Yes (3) Anemia Is this a current diagnosis for this admission?: Yes (4) Leukocytosis Is this a current diagnosis for this admission?: Yes (5) Hypertension Is this a current diagnosis for this admission?: Yes (6) COPD (chronic obstructive pulmonary disease) Is this a current diagnosis for this admission?: Yes (7) Hypokalemia Is this a current diagnosis for this admission?: Yes - Additional Information Resuscitation Status: Full Code Discharge Diet: Regular Discharge Activity: Activity As Tolerated, Balance Activity w/Rest, Supervised Activity Referrals: [facility] [Provider Group] (follow up next week.) PETE JOSEPH MD [ACTIVE STAFF] - (Follow up in 3-4 weeks) Prescriptions: Ferrous Sulfate [Feosol 325 mg Tablet] 325 mg PO DAILY #30 tablet Ondansetron [Zofran Odt 4 mg Tablet] 1 - 2 tab PO Q4HP PRN #20 tab.rapdis PRN Reason: Home Medications: Amlodipine Besylate [Norvasc 5 mg Tablet] 5 mg PO DAILY 01/09/20 Calcium Carbonate [Caltrate 600 mg Tablet] 600 mg PO DAILY 01/09/20 Multivitamin 1 each PO DAILY 01/09/20 [place]-3/Dha/Epa/Fish Oil [Fish Oil 1,000 mg Softgel] 1 each PO DAILY 01/09/20 Acetaminophen [Tylenol 325 mg Tablet] 650 mg PO Q4HP PRN tablet 01/19/20 Ferrous Sulfate [Feosol 325 mg Tablet] 325 mg PO DAILY #30 tablet 01/19/20 Ondansetron [Zofran Odt 4 mg Tablet] 1 - 2 tab PO Q4HP PRN #20 tab.rapdis 01/19/20 History of Present Illiness History of Present Illness: Per H&P by Dr. Jara: NABIL CORONADO is a 89 year old female with a past medical history of osteoarthritis and hypertension. Presents with approximately 5 days of loose stools followed by 4 episodes of bright red blood per rectum over the last 24 hours. She denies anticoagulation, antiplatelet therapy, previous episode or history of abdominal pain nausea or vomiting following a meal. She otherwise feels well and has had no further episode in the emergency department. She is found to have a mild anemia with a hemoglobin of 11.3 followed by 10.5 again repeated at 10.5 she is referred to the hospitalist for admission. She admits to weight loss of approximately 15 pounds in the last 6 months without effort. She denies change in stool caliber. Or recent GI screening. Hospital Course Hospital Course: (1) Mass of hepatic flexure of colon POD 5 s/p exploratory laparotomy, right hemicolectomy with ileotransverse colostomy. Likely colonic adenocarcinoma. Surgery and oncology on board. Diet was slowly advanced; now tolerating a regular (soft) diet witout increased pain, n/v. Passing stool and gas. Antiemetics as needed. Encouraged ambulation. To follow up with the [facility] next week. To follow up with Heme/Onc, Dr. Joseph, in 3 weeks. (2) GI bleed Resolved. Secondary to colonic mass. s/p 1 unit PRBC on admission. Denies any melena, hematochezia or hematemesis. Continue PPIs. (3) Anemia Acute iron deficiency anemia most likely due to GI bleed. Iron studies suggestive of severe iron deficiency anemia. Denies any melena, hematochezia or hematemesis. s/p 1 unit PRBC on admission. H&H stable at 11.8 Continue oral ferrous sulfate. (4) Leukocytosis Continues to improve; WBC 17k-< 27k, 11k Likely reactive secondary to GI bleed/surgical interventions. No sign of systemic infection. CXR negative for acute findings. UA negative Cultures negative since admission. No indications for antibiotics at this time. (5) Hypertension Controlled. Continue home dose Norvasc (6) COPD (chronic obstructive pulmonary disease) Stable and without exacerbation throughout admission. History of COPD and former smoker. SPO2 WNL on RA. Incentive spirometer, flutter valve, and ambulation. (7) Hypokalemia Replete. Likely due to GI losses. No acute EKG changes. Physical Exam Vital Signs: Temp Pulse Resp BP Pulse Ox 97.5 F 86 17 103/62 89 L 01/19/20 07:22 01/19/20 07:22 01/19/20 07:22 01/19/20 07:22 01/19/20 07:22 Intake & Output 01/18/20 01/19/20 01/20/20 06:59 06:59 06:59 Intake Total 1100 450 Output Total 475 Balance 1100 -25 Weight 63 kg 41.1 kg General appearance: PRESENT: no acute distress, cooperative, thin, well- developed, well-nourished Head exam: PRESENT: atraumatic, normocephalic Eye exam: PRESENT: conjunctiva pink, EOMI, PERRLA. ABSENT: scleral icterus Mouth exam: PRESENT: moist, tongue midline Respiratory exam: PRESENT: clear to auscultation aisha, symmetrical, unlabored, other - room air. ABSENT: rales, rhonchi, wheezes Cardiovascular exam: PRESENT: RRR. ABSENT: diastolic murmur, rubs, systolic murmur Vascular exam: PRESENT: normal capillary refill GI/Abdominal exam: PRESENT: normal bowel sounds, soft, tenderness. ABSENT: distended, guarding, mass, organolmegaly, rebound Rectal exam: PRESENT: deferred Extremities exam: PRESENT: full ROM. ABSENT: calf tenderness, clubbing, pedal edema Musculoskeletal exam: PRESENT: ambulatory Neurological exam: PRESENT: alert, awake, oriented to person, oriented to place, oriented to time, oriented to situation, CN II-XII grossly intact. ABSENT: motor sensory deficit Psychiatric exam: PRESENT: anxious. ABSENT: homicidal ideation, suicidal ideation Skin exam: PRESENT: dry, intact, warm. ABSENT: cyanosis, rash Results Laboratory Results: WBC 11.1 10^3/uL (4.0-10.5) H 01/16/20 06:11 RBC 3.99 10^6/uL (3.72-5.28) 01/16/20 06:11 Hgb 11.8 g/dL (12.0-15.5) L 01/16/20 06:11 Hct 35.7 % (36.0-47.0) L 01/16/20 06:11 MCV 90 fl (80-97) 01/16/20 06:11 MCH 29.5 pg (27.0-33.4) 01/16/20 06:11 MCHC 33.0 g/dL (32.0-36.0) 01/16/20 06:11 RDW 14.6 % (11.5-14.0) H 01/16/20 06:11 Plt Count 445 10^3/uL (150-450) 01/16/20 06:11 Lymph % (Auto) 12.0 % (13-45) L 01/14/20 05:23 [place] % (Auto) 5.3 % (3-13) 01/14/20 05:23 Eos % (Auto) 2.5 % (0-6) 01/14/20 05:23 Baso % (Auto) 0.7 % (0-2) 01/14/20 05:23 Reticulocyte # 0.052 10^6/uL (0.028-0.122) 01/10/20 06:04 Absolute Neuts (auto) 11.3 10^3/uL (1.7-8.2) H 01/14/20 05:23 Absolute Lymphs (auto) 1.7 10^3/uL (0.5-4.7) 01/14/20 05:23 Absolute Monos (auto) 0.8 10^3/uL (0.1-1.4) 01/14/20 05:23 Absolute Eos (auto) 0.4 10^3/uL (0.0-0.6) 01/14/20 05:23 Absolute Basos (auto) 0.1 10^3/uL (0.0-0.2) 01/14/20 05:23 Total Counted 100 01/09/20 05:53 Seg Neutrophils % 79.5 % (42-78) H 01/14/20 05:23 Seg Neuts % (Manual) 91 % (42-78) H 01/09/20 05:53 Lymphocytes % (Manual) 3 % (13-45) L 01/09/20 05:53 Monocytes % (Manual) 4 % (3-13) 01/09/20 05:53 Eosinophils % (Manual) 0 % (0-6) 01/09/20 05:53 Basophils % (Manual) 2 % (0-2) 01/09/20 05:53 Abs Neuts (Manual) 24.6 10^3/uL (1.7-8.2) H 01/09/20 05:53 Abs Lymphs (Manual) 0.8 10^3/uL (0.5-4.7) 01/09/20 05:53 Abs Monocytes (Manual) 1.1 10^3/uL (0.1-1.4) 01/09/20 05:53 Absolute Eos (Manual) 0.0 10^3/uL (0.0-0.6) 01/09/20 05:53 Abs Basophils (Manual) 0.5 10^3/uL (0.0-0.2) H 01/09/20 05:53 Toxic Granulation 1+ 01/09/20 05:53 Toxic Vacuolation PRESENT 01/09/20 05:53 Platelet Comment ADEQUATE 01/09/20 05:53 Poikilocytosis SLIGHT 01/09/20 05:53 Anisocytosis SLIGHT 01/09/20 05:53 Ovalocytes SLIGHT 01/09/20 05:53 Retic Count (auto) 1.24 % (0.66-2.85) 01/10/20 06:04 Sodium 135.1 mmol/L (137-145) L 01/17/20 05:23 Potassium 3.8 mmol/L (3.6-5.0) 01/17/20 05:23 Chloride 104 mmol/L (98-107) 01/17/20 05:23 Carbon Dioxide 28 mmol/L (22-30) 01/17/20 05:23 Anion Gap 3 (5-19) L 01/17/20 05:23 BUN 14 mg/dL (7-20) 01/17/20 05:23 Creatinine 0.88 mg/dL (0.52-1.25) 01/17/20 05:23 Est GFR ( Amer) > 60 (>60) 01/17/20 05:23 Est GFR (MDRD) Non-Af > 60 (>60) 01/17/20 05:23 Glucose 80 mg/dL (75-110) 01/17/20 05:23 POC Glucose 101 mg/dL (70-110) 01/14/20 11:25 Calcium 8.0 mg/dL (8.4-10.2) L 01/17/20 05:23 Magnesium 1.8 mg/dL (1.6-2.3) 01/15/20 05:24 Iron 32.0 ug/dL (37-170) L 01/10/20 10:48 TIBC 194 ug/dL (250-450) L 01/10/20 10:48 % Saturation 16 % 01/10/20 10:48 Transferrin 120.95 mg/dL (206.00-381.00) L 01/10/20 10:48 Ferritin 409.00 ng/mL (11.1-264.0) H 01/10/20 10:48 Total Bilirubin 0.4 mg/dL (0.2-1.3) 01/15/20 05:24 Direct Bilirubin 0.0 mg/dL (0.0-0.4) 01/15/20 05:24 Neonat Total Bilirubin Not Reportable 01/15/20 05:24 Neonat Direct Bilirubin Not Reportable 01/15/20 05:24 Neonat Indirect Bili Not Reportable 01/15/20 05:24 AST 22 U/L (14-36) 01/15/20 05:24 ALT 12 U/L (<35) 01/15/20 05:24 Alkaline Phosphatase 100 U/L (38-126) 01/15/20 05:24 Total Protein 4.8 g/dL (6.3-8.2) L 01/15/20 05:24 Albumin 2.0 g/dL (3.5-5.0) L 01/15/20 05:24 Carcinoembryonic Ag 66.30 ng/mL (<3.0) H 01/10/20 10:48 Vitamin B12 903.0 pg/mL (239-931) 01/10/20 10:48 Folate > 20.00 ng/mL (>2.76) 01/10/20 10:48 Urine Color YELLOW 01/09/20 09:04 Urine Appearance CLEAR 01/09/20 09:04 Urine pH 5.0 (5.0-9.0) 01/09/20 09:04 Ur Specific [place] 1.019 01/09/20 09:04 Urine Protein 30 mg/dL (NEGATIVE) H 01/09/20 09:04 Urine Glucose (UA) NEGATIVE mg/dL (NEGATIVE) 01/09/20 09:04 Urine Ketones TRACE mg/dL (NEGATIVE) H 01/09/20 09:04 Urine Blood NEGATIVE (NEGATIVE) 01/09/20 09:04 Urine Nitrite (Reflex) NEGATIVE (NEGATIVE) 06/09/20 09:04 Urine Bilirubin NEGATIVE (NEGATIVE) 01/09/20 09:04 Urine Urobilinogen NEGATIVE mg/dL (<2.0) 01/09/20 09:04 Leukocyte Esterase Rfl NEGATIVE (NEGATIVE) 01/09/20 09:04 Urine RBC (Auto) 2 /HPF 01/09/20 09:04 U Hyaline Cast (Auto) 1 /LPF 01/09/20 09:04 Urine WBC (Reflex) 1 /HPF 01/09/20 09:04 Urine Mucus (Auto) OCC /LPF 01/09/20 09:04 Urine Ascorbic Acid 20 (NEGATIVE) H 01/09/20 09:04 SARS-CoV-2 (PCR) NEGATIVE (NEGATIVE) 01/09/20 10:50 Blood Type O NEGATIVE 01/08/20 13:00 Blood Type Confirm O NEGATIVE 01/08/20 21:55 Antibody Screen NEGATIVE 01/08/20 13:00 Crossmatch See Detail 01/08/20 13:00 Impressions: Chest X-Ray 01/09/20 00:00 IMPRESSION: COPD. Trace right pleural effusion. Abdomen/Pelvis CT 01/11/20 08:00 IMPRESSION: 1. Large primary colon cancer in the right lower quadrant. 2. No evidence of metastatic disease. Chest CT 01/11/20 08:00 IMPRESSION: Chronic interstitial lung disease. Small effusions. Several small pulmonary nodules for which cannot exclude metastatic disease. KUB X-Ray 01/11/20 13:51 IMPRESSION: Nasogastric tube in the stomach. Chest X-Ray 01/16/20 00:00 IMPRESSION: Small bilateral pleural effusions are present, more prominent than on prior studies Persistent bibasilar consolidation atelectasis versus pneumonia Plan Plan of Treatment: Patient is discharged home in stable condition, to family with home health services. She should follow up with her primary care provider next week. Follow up with the [facility] next week. follow up with Dr. Joseph in 3 weeks. Take your medications as prescribed. Eat a regular, soft, diet and advance gradually as tolerated. Return to the emergency department as needed for concerning symptoms. ----- Attempted to call the patient's niece (primary director career services), Sherrill Fajardo, to review discharge instructions. Voice mail was left w/ request she return call. Time Spent: Greater than 30 Minutes Stroke Is this a Stroke Patient?: No Acute Heart Failure - Is this a Heart Failure Patient?: No
[2020-01-19] MEDS: OMEGA-3 ACID ETHYL ESTERS 1 GM CAPSULE PO SCH (11:35)
[2020-01-19] MEDS: MULTIVITAMIN TABLET PO SCH (11:35)
[2020-01-19] MEDS: CALCIUM CARBONATE 600 MG TABLET PO SCH (11:35)
[2020-01-19] MEDS: METOPROLOL TARTRATE 25 MG TABLET PO SCH (11:35)
[2020-01-19] MEDS: FERROUS SULFATE 325 MG TABLET PO SCH (11:37)
[2020-01-19 16:06] VITALS: BP 120/62
== END 2020-01-19 20:00 | disposition home or self-care (01) | DRG 330 ==
LOC: EDBD → ER 12:47 → EH 23:12 → 3S 01-09 00:58 → 4N 01-18 23:01
PROVIDERS: ADMIT Internal Medicine; ATTEND Registered Nurse
PROC: 30233N1 Transfusion of Nonautologous Red Blood Cells into Peripheral Vein, Percutaneous Approach (ICD-10-PCS; 2020-01-08)
PROC: 0DBL8ZX Excision of Transverse Colon, Via Natural or Artificial Opening Endoscopic, Diagnostic (ICD-10-PCS; 2020-01-10)
PROC: 0DB68ZX Excision of Stomach, Via Natural or Artificial Opening Endoscopic, Diagnostic (ICD-10-PCS; 2020-01-10)
PROC: 0DBK8ZX Excision of Ascending Colon, Via Natural or Artificial Opening Endoscopic, Diagnostic (ICD-10-PCS; 2020-01-10 12:00)
PROC: 0D1L0Z4 Bypass Transverse Colon to Cutaneous, Open Approach (ICD-10-PCS; 2020-01-11)
PROC: 0DTF0ZZ Resection of Right Large Intestine, Open Approach (ICD-10-PCS; principal; 2020-01-11 12:45)
DX: K92.2 Gastrointestinal hemorrhage, unspecified (principal); C18.3 Malignant neoplasm of hepatic flexure; D62 Acute posthemorrhagic anemia; I10 Essential (primary) hypertension; J44.9 Chronic obstructive pulmonary disease, unspecified; E87.6 Hypokalemia; K29.71 Gastritis, unspecified, with bleeding; Z60.2 Problems related to living alone; Z79.899 Other long term (current) drug therapy; Z87.891 Personal history of nicotine dependence
CPT/HCPCS: 00790; 00813; 36415; 36430; 43239; 45380; 45381; 71045; 71260; 74018; 74177; 80048; 80053; 81001; 82378; 82607; 82728; 82746; 82962; 83540; 83550; 83735; 84466; 85025; 85027; 85045; 86850; 86900; 86901; 86920; 87040; 87070; 87205; 87635; 88305; 88309; 88341; 88342; 93005; 93010; 94640; 94667; 94799; 96360; 96361; 99140; 99285; J0610; C9113; C9290; C9803; J0131; J0295; J0330; J0694; J1100; J1644; J2250; J2270; J2370; J2405; J2704; J3010; J3475; J3480; J3490; J7030; J7042; J7050; P9016